=== PATIENT | female | born 1980 | race Caucasian/White ===

== ENCOUNTER 2016-10-24 15:09 | Emergency (ER) | payer OTHER ==
[2016-10-24] MEDS ORDERED: ACETAMINOPHEN TAB 500 MG TAB PO STA (15:44)
--- NOTE | 2016-10-24 15:49 | ED ---
General Adult HPI - General Chief complaint: Recheck/Abnormal Lab/Rx Stated complaint: Over all pain Time Seen by Provider: 10/24/16 15:25 Source: patient Mode of arrival: ambulatory Limitations: no limitations - History of Present Illness Initial comments: Complaining about her lack of energy, tired, generalized fatigue and the pain all over she feels that there are she has a headache any travels down her neck and upper extremities and lower extremities. Also complaining about the joint pains she feels that her joints are aching but they don't recall the time of this pain moved from [place] to . she has been very tired and lethargic lack of energy for about a month now she does have a history of headache in the past and she has a headache now also short winded she has a history of asthma denies any abdominal pain pain about joint aches no frequency urgency dysuria no symptoms of TIA or CVA he also had a total hysterectomy including uterus and ovaries she is on on hormone replacement therapy she does take estrogen pill once a day, denies any history of depression or anxiety or fibromyalgia - Related Data Home Medications Medication Instructions Recorded Confirmed Montelukast Sodium [Singulair] 10 mg PO HS 05/14/14 10/24/16 Albuterol Inhaler [Ventolin Hfa 1 - 2 puff INHALATION RT-Q4H PRN 10/24/16 Inhaler] Beclomethasone Dipropionate [Qvar 1 puff INHALATION RT-BID 10/24/16 10/24/16 80 mcg] Black Cohosh Root [Black Cohosh] 200 mg PO DAILY 10/24/16 10/24/16 Estradiol 2 mg PO HS 10/24/16 10/24/16 Fluticasone Nasal [place] [Flonase 1 spray EA NOSTRIL DAILY PRN 10/24/16 10/24/16 Nasal [place]] Allergies Allergy/AdvReac Type Severity Reaction Status Date / Time hydrocodone bitartrate AdvReac Vomiting Verified 10/24/16 16:11 [From Vicodin] eggplant Allergy Unknown Uncoded 10/24/16 15:23 Review of Systems ROS Statement: Those systems with pertinent positive or pertinent negative responses have been documented in the HPI. ROS Other: All systems not noted in ROS Statement are negative. Past Medical History Past Medical History: Asthma History of Any Multi-Drug Resistant Organisms: None Reported Past Surgical History: Section, Hysterectomy Past Psychological History: Depression Smoking Status: Current some day smoker Past Alcohol Use History: Occasional Past Drug Use History: None Reported General Exam - General Exam Comments Initial Comments: General: The patient is awake and alert, in no distress, and does not appear acutely ill. Skin: Skin is warm and dry and no rashes or lesions are noted. Eye: Pupils are equal, round and reactive to light, extra-ocular movements are intact; there is normal conjunctiva bilaterally. Ears, nose, mouth and throat: There are moist mucous membranes and no oral lesions. Neck: The neck is supple, there is no tenderness or JVD. Cardiovascular: There is a regular rate and rhythm. No murmur, rub or gallop is appreciated. Respiratory: To auscultation bilateral, no wheezing no rhonchi no distress respiratory romero noticed Gastrointestinal: Soft, non-distended, non-tender abdomen without masses or organomegaly noted. There is no rebound or guarding present. Bowel sounds are unremarkable. Back: There is no tenderness to palpation in the midline. There is no obvious deformity. Musculoskeletal: Normal ROM, no tenderness, There is no pedal edema. There is no calf tenderness or swelling. No cords were appreciated. Neurological: CN II-XII intact, Cranial nerves III through XII are intact. There are no obvious motor or sensory deficits. Coordination appears grossly intact. Speech is normal. Psychiatric: Cooperative, seems somewhat depressed Limitations: no limitations Course Vital Signs 10/24/16 10/24/16 15:18 17:40 Temperature 98.1 F Pulse Rate 84 62 Respiratory 16 18 Rate Blood Pressure 111/57 98/50 O2 Sat by Pulse 98 99 Oximetry She was reassessed at 1730, now she is now feeling as bad as she did when she came in, she still pains or feeling like a small recurrence lactic U did her different parts of her body and some muscle pains and feeling weak. I discussed all her labs that included CBC, compressive metabolic panel, she says , troponin, uric acid, calcium, magnesium, phosphate, urinalysis all those were normal x-ray showed some findings consistent with a bronchitis. I am I recommended that we could do a head CT she agreed with that and will proceed with a head CT now - Reevaluation(s) Reevaluation #3: 10/24/16 18:40 She delivered advised to see her family doctor for the follow-up and advised to have MRI of the brain done her CAT scan was negative FINDINGS were discussed with the patient and unfortunately I was not able to find etiology for her symptoms today EKG Findings - EKG Comments: EKG Findings:: EKG is normal sinus rhythm ventricular rate is 71 [place] interval is 180 QRS duration 74 QT/QTc is 378/410 review of this EKG does not reveal any ST elevation or ST depression Medical Decision Making - Lab Data Result diagrams: 10/24/16 16:10 10/24/16 16:10 Lab Results 10/24/16 10/24/16 10/24/16 Range/Units 16:10 16:10 16:10 WBC 7.1 (3.8-10.6) k/uL RBC 4.37 (3.80-5.40) m/uL Hgb 13.1 (11.4-16.0) gm/dL Hct 39.0 (34.0-46.0) % MCV 89.2 (80.0-100.0) fL MCH 30.0 (25.0-35.0) pg MCHC 33.7 (31.0-37.0) g/dL RDW 13.6 (11.5-15.5) % Plt Count 291 (150-450) k/uL Neutrophils % 60 % Lymphocytes % 30 % Monocytes % 4 % Eosinophils % 4 % Basophils % 1 % Neutrophils # 4.2 (1.3-7.7) k/uL Lymphocytes # 2.1 (1.0-4.8) k/uL Monocytes # 0.3 (0-1.0) k/uL Eosinophils # 0.3 (0-0.7) k/uL Basophils # 0.1 (0-0.2) k/uL ESR 3 (0-20) mm/hr Sodium 142 (137-145) mmol/L Potassium 4.4 (3.5-5.1) mmol/L Chloride 107 (98-107) mmol/L Carbon Dioxide 27 (22-30) mmol/L Anion Gap 8 mmol/L BUN 12 (7-17) mg/dL Creatinine 0.70 (0.52-1.04) mg/dL Est GFR (MDRD) Af Amer >60 (>60 ml/min/1.73 sqM) Est GFR (MDRD) Non-Af >60 (>60 ml/min/1.73 sqM) Glucose 76 (74-99) mg/dL Plasma Lactic Acid Dmitry (0.7-2.0) mmol/L Uric Acid 6.2 (3.7-7.4) mg/dL Calcium 9.7 (8.4-10.2) mg/dL Phosphorus 4.2 (2.5-4.5) mg/dL Magnesium 1.8 (1.6-2.3) mg/dL Total Bilirubin 0.3 (0.2-1.3) mg/dL AST 18 (14-36) U/L ALT 28 (9-52) U/L Alkaline Phosphatase 58 (38-126) U/L Total Creatine Kinase 57 (30-135) U/L CK-MB (CK-2) 0.6 (0.0-2.4) ng/mL CK-MB (CK-2) Rel Index 1.1 Troponin I <0.012 (0.000-0.034) ng/mL Total Protein 6.7 (6.3-8.2) g/dL Albumin 3.9 (3.5-5.0) g/dL TSH 3.370 (0.465-4.680) mIU/L Urine Color Urine Appearance (Clear) Urine pH (5.0-8.0) Ur Specific [place] (1.001-1.035) Urine Protein (Negative) Urine Glucose (UA) (Negative) Urine Ketones (Negative) Urine Blood (Negative) Urine Nitrite (Negative) Urine Bilirubin (Negative) Urine Urobilinogen (<2.0) mg/dL Ur Leukocyte Esterase (Negative) 10/24/16 10/24/16 Range/Units 16:10 16:10 WBC (3.8-10.6) k/uL RBC (3.80-5.40) m/uL Hgb (11.4-16.0) gm/dL Hct (34.0-46.0) % MCV (80.0-100.0) fL MCH (25.0-35.0) pg MCHC (31.0-37.0) g/dL RDW (11.5-15.5) % Plt Count (150-450) k/uL Neutrophils % % Lymphocytes % % Monocytes % % Eosinophils % % Basophils % % Neutrophils # (1.3-7.7) k/uL Lymphocytes # (1.0-4.8) k/uL Monocytes # (0-1.0) k/uL Eosinophils # (0-0.7) k/uL Basophils # (0-0.2) k/uL ESR (0-20) mm/hr Sodium (137-145) mmol/L Potassium (3.5-5.1) mmol/L Chloride (98-107) mmol/L Carbon Dioxide (22-30) mmol/L Anion Gap mmol/L BUN (7-17) mg/dL Creatinine (0.52-1.04) mg/dL Est GFR (MDRD) Af Amer (>60 ml/min/1.73 sqM) Est GFR (MDRD) Non-Af (>60 ml/min/1.73 sqM) Glucose (74-99) mg/dL Plasma Lactic Acid Dmitry 1.2 (0.7-2.0) mmol/L Uric Acid (3.7-7.4) mg/dL Calcium (8.4-10.2) mg/dL Phosphorus (2.5-4.5) mg/dL Magnesium (1.6-2.3) mg/dL Total Bilirubin (0.2-1.3) mg/dL AST (14-36) U/L ALT (9-52) U/L Alkaline Phosphatase (38-126) U/L Total Creatine Kinase (30-135) U/L CK-MB (CK-2) (0.0-2.4) ng/mL CK-MB (CK-2) Rel Index Troponin I (0.000-0.034) ng/mL Total Protein (6.3-8.2) g/dL Albumin (3.5-5.0) g/dL TSH (0.465-4.680) mIU/L Urine Color Yellow Urine Appearance Clear (Clear) Urine pH 5.5 (5.0-8.0) Ur Specific [place] 1.019 (1.001-1.035) Urine Protein Negative (Negative) Urine Glucose (UA) Negative (Negative) Urine Ketones Trace H (Negative) Urine Blood Negative (Negative) Urine Nitrite Negative (Negative) Urine Bilirubin Negative (Negative) Urine Urobilinogen <2.0 (<2.0) mg/dL Ur Leukocyte Esterase Negative (Negative) Disposition Clinical Impression: Generalized weakness, Chronic fatigue syndrome Disposition: HOME SELF-CARE Condition: Good Instructions: Weakness (ED) Referrals: Rashaun Francis MD [Primary Care Provider] - 1-2 days
[2016-10-24 16:26] LABS: Basophils # (A) 0.1 k/uL (0-0.2); Basophils % (A) 1 %; CH 30.5; CHCM 34.4; Eosinophils # (A) 0.3 k/uL (0-0.7); Eosinophils % (A) 4 %; HGB 13.1 gm/dL (11.4-16.0); Luc # (Auto) 0.09; Luc % (Auto) 1; Lymphocytes # (A) 2.1 k/uL (1.0-4.8); Lymphocytes % (A) 30 %; MCHC 33.7 g/dL (31.0-37.0); MCV 89.2 fL (80.0-100.0); Mean Platelet Volume 6.2; Monocytes # (A) 0.3 k/uL (0-1.0); Monocytes % (A) 4 %; Neutrophils # (A) 4.2 k/uL (1.3-7.7); Neutrophils % (A) 60 %; RBC 4.37 m/uL (3.80-5.40); RDW 13.6 % (11.5-15.5); WBC 7.1 k/uL (3.8-10.6); WBC (Perox) 7.29
[2016-10-24 16:27] LABS: Appearance,Urine Clear (Clear); Bilirubin,Urine Negative (Negative); Glucose,Urine (UA) Negative (Negative); Ketones,Urine Trace (Negative); Leukocyte Esterase,Urine Negative (Negative); Nitrite,Urine Negative (Negative); PH, Urine 5.5 (5.0-8.0); Protein,Urine Negative (Negative); Specific Gravity,Urine 1.019 (1.001-1.035); UA Billing (MACRO vs. MICRO) CHEM; Urobilinogen,Urine <2.0 mg/dL (<2.0)
--- NOTE | 2016-10-24 16:37 | XR ---
EXAMINATION TYPE: XR chest 2V DATE OF EXAM: 10/24/2016 4:25 PM COMPARISON: None HISTORY: 36-year-old female weakness and short of breath TECHNIQUE: PA and lateral views FINDINGS: The cardiomediastinal silhouette, aorta, and pulmonary vasculature are within normal limits. Some sub tle scattered peribronchial cuffing. Otherwise, lungs and pleural spaces are clear. IMPRESSION: Subtle scattered peribronchial cuffing could represent bronchitis or chronic asthma.
[2016-10-24 16:39] LABS: ALT 28 U/L (9-52); AST 18 U/L (14-36); Alkaline Phosphatase 58 U/L (38-126); Anion Gap 8 mmol/L; Blood Urea Nitrogen 12 mg/dL (7-17); Calcium 9.7 mg/dL (8.4-10.2); Carbon Dioxide 27 mmol/L (22-30); Chloride 107 mmol/L (98-107); Glucose 76 mg/dL (74-99); Magnesium 1.8 mg/dL (1.6-2.3); Non-African American GFR(MDRD) >60 (>60 ml/min/1.73 sqM); Phosphorous 4.2 mg/dL (2.5-4.5); Potassium 4.4 mmol/L (3.5-5.1); Sodium 142 mmol/L (137-145); Total Bilirubin 0.3 mg/dL (0.2-1.3); Total Protein 6.7 g/dL (6.3-8.2); Uric Acid 6.2 mg/dL (3.7-7.4)
[2016-10-24 16:47] LABS: Creatine Kinase 57 U/L (30-135)
[2016-10-24 17:00] LABS: Creatine Kinase MB 0.6 ng/mL (0.0-2.4); Troponin I <0.012 ng/mL (0.000-0.034)
[2016-10-24 17:34] LABS: Erythrocyte Sedimentation Rate 3 mm/hr (0-20)
[2016-10-24 17:57] VITALS: RESP 18
--- NOTE | 2016-10-24 18:23 | CT ---
EXAMINATION TYPE: CT brain wo con DATE OF EXAM: 10/24/2016 6:14 PM COMPARISON: NONE HISTORY: 36-year-old female complains of "all over body pains." TECHNIQUE: Examination was done in axial plane without intravenous contrast. Coronal and sagittal r econstructions performed. CT DLP: 956.1 mGycm Automated exposure control for dose reduction was used. FINDINGS: There is no evidence of acute intracranial hemorrhage, acute ischemic changes, mass, mass-effect, or extra-axial fluid collection. There is no effacement of cerebral sulci or basal subarachnoid cister ns. There is no hydrocephalus. There is no midline shift. Trejo-white matter distinction is preserv ed. Mild mucosal thickening posterior left ethmoid air cells. Mastoid air cells well pneumatized. Orbits and globes are intact. IMPRESSION: No acute intracranial abnormality seen.
[2016-10-24 18:42] VITALS: BP 113/53; PULSE 63; TEMP 97.6
== END 2016-10-24 18:42 | disposition home or self-care (01) ==
LOC: EC 15:09
DX: R53.1 Weakness (principal); R53.82 Chronic fatigue, unspecified; R51 Headache; J45.909 Unspecified asthma, uncomplicated; F17.200 Nicotine dependence, unspecified, uncomplicated; Z79.51 Long term (current) use of inhaled steroids; Z79.899 Other long term (current) drug therapy; Z79.3 Long term (current) use of hormonal contraceptives; Z88.5 Allergy status to narcotic agent; Z91.018 Allergy to other foods
CPT/HCPCS: 36415; 70450; 71020; 80053; 81003; 82550; 82553; 83605; 83735; 84100; 84443; 84484; 84550; 85025; 85652; 93005; 99284

== ENCOUNTER 2016-12-21 19:11 | Emergency (ER) | payer OTHER ==
[2016-12-21 19:27] VITALS: BP 112/63; PULSE 69; RESP 17; TEMP 97.1
--- NOTE | 2016-12-21 19:43 | ED ---
Back Pain HPI - General Chief Complaint: Back Pain/Injury Stated Complaint: Back Pain Time Seen by Provider: 12/21/16 19:30 Source: patient, RN notes reviewed Limitations: no limitations - History of Present Illness Initial Comments: 36-year-old female presents emergency Department chief complaint back pain. 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 She states that she's been having diffuse back pain and neck discomfort. Patient denies any bowel bladder incontinence or retention. Denies any saddle anesthesia or lower extremity paresthesias. She is increased pain with any movement of her back and neck. Denies fever, chills , headache, dizziness. Patient states not take anything for the pain she did move quickly today which made symptoms much worse. - Related Data Home Medications Medication Instructions Recorded Confirmed Montelukast Sodium [Singulair] 10 mg PO HS 05/14/14 10/24/16 Albuterol Inhaler [Ventolin Hfa 1 - 2 puff INHALATION RT-Q4H PRN 10/24/16 Inhaler] Beclomethasone Dipropionate [Qvar 1 puff INHALATION RT-BID 10/24/16 10/24/16 80 mcg] Black Cohosh Root [Black Cohosh] 200 mg PO DAILY 10/24/16 10/24/16 Estradiol 2 mg PO HS 10/24/16 10/24/16 Fluticasone Nasal [place] [Flonase 1 spray EA NOSTRIL DAILY PRN 10/24/16 10/24/16 Nasal [place]] Previous Rx's Medication Instructions Recorded Acetaminophen-Codeine 300-30mg 1 tab PO Q4H PRN #20 tablet 12/21/16 [Tylenol #3] Cyclobenzaprine [Flexeril] 10 mg PO TID PRN #15 tab 12/21/16 methylPREDNISolone [Medrol Dose 4 mg PO DIRECTED #1 pack 12/21/16 Pack] Allergies Allergy/AdvReac Type Severity Reaction Status Date / Time hydrocodone bitartrate AdvReac Vomiting Verified 12/21/16 19:24 [From Vicodin] eggplant Allergy Unknown Uncoded 12/21/16 19:24 Review of Systems ROS Statement: Those systems with pertinent positive or pertinent negative responses have been documented in the HPI. ROS Other: All systems not noted in ROS Statement are negative. Past Medical History Past Medical History: Asthma History of Any Multi-Drug Resistant Organisms: None Reported Past Surgical History: Section, Hysterectomy Past Psychological History: Depression Smoking Status: Current some day smoker Past Alcohol Use History: Occasional Past Drug Use History: None Reported General Exam Limitations: no limitations General appearance: alert, in no apparent distress Head exam: Present: atraumatic, normocephalic, normal inspection Neck exam: Present: full ROM. Absent: tenderness, meningismus Respiratory exam: Present: normal lung sounds bilaterally. Absent: respiratory distress, wheezes, rales, rhonchi, stridor Cardiovascular Exam: Present: regular rate, normal rhythm, normal heart sounds. Absent: systolic murmur, diastolic murmur, rubs, gallop, clicks GI/Abdominal exam: Present: soft, normal bowel sounds. Absent: distended, tenderness, guarding, rebound, rigid Extremities exam: Present: normal inspection, full ROM, normal capillary refill. Absent: tenderness, pedal edema, joint swelling, calf tenderness Back exam: Present: full ROM, tenderness (Diffuse thoracic and lumbar), muscle spasm, paraspinal tenderness. Absent: vertebral tenderness Neurological exam: Present: alert, oriented X3, CN II-XII intact, reflexes normal. Absent: motor sensory deficit Skin exam: Present: warm, dry, intact, normal color. Absent: rash Course Vital Signs 12/21/16 19:24 Temperature 97.1 F L Pulse Rate 69 Respiratory 17 Rate Blood Pressure 112/63 O2 Sat by Pulse 97 Oximetry Medical Decision Making - Medical Decision Making 36-year-old female presented for back pain. Patient is having back pain related to her job at this time. Patient has no signs of meningismus. Patient has no neurological deficits and no decreased strength of extremities. Patient we discharged with pain medication, muscle relaxers. Return parameters were discussed. Disposition Clinical Impression: Mechanical back pain Disposition: HOME SELF-CARE Condition: Stable Instructions: Back Pain (ED) Additional Instructions: Please return to the Emergency Department if symptoms worsen or any other concerns. Prescriptions: Acetaminophen-Codeine 300-30mg [Tylenol #3] 1 tab PO Q4H PRN #20 tablet PRN Reason: pain Cyclobenzaprine [Flexeril] 10 mg PO TID PRN #15 tab PRN Reason: Muscle Spasm methylPREDNISolone [Medrol Dose Pack] 4 mg PO DIRECTED #1 pack Referrals: Rashaun Francis MD [Primary Care Provider] - 1-2 days Time of Disposition: 19:41
== END 2016-12-21 19:47 | disposition home or self-care (01) ==
LOC: EC 19:11
DX: M62.830 Muscle spasm of back (principal); J45.909 Unspecified asthma, uncomplicated; F17.200 Nicotine dependence, unspecified, uncomplicated; Z79.51 Long term (current) use of inhaled steroids; Z79.899 Other long term (current) drug therapy; Z88.5 Allergy status to narcotic agent; Z91.018 Allergy to other foods
CPT/HCPCS: 99282

== ENCOUNTER 2018-01-07 19:28 | Emergency (ER) | payer OTHER ==
[2018-01-07] MEDS ORDERED: SODIUM CHLORIDE 0.9% 500 ML IV STA (21:25)
[2018-01-07 21:56] LABS: Appearance,Urine Clear (Clear); Bilirubin,Urine Negative (Negative); Blood,Urine Negative (Negative); Color,Urine Yellow; Glucose,Urine (UA) Negative (Negative); Ketones,Urine Negative (Negative); Leukocyte Esterase,Urine Negative (Negative); Nitrite,Urine Negative (Negative); PH, Urine 5.5 (5.0-8.0); Protein,Urine Negative (Negative); Specific Gravity,Urine 1.015 (1.001-1.035); Urobilinogen,Urine <2.0 mg/dL (<2.0)
[2018-01-07 21:58] LABS: Basophils % (A) 1 %; Eosinophils # (A) 0.2 k/uL (0-0.7); Eosinophils % (A) 3 %; HCT 39.6 % (34.0-46.0); HGB 13.5 gm/dL (11.4-16.0); Lymphocytes # (A) 2.6 k/uL (1.0-4.8); Lymphocytes % (A) 36 %; MCH 29.9 pg (25.0-35.0); MCHC 34.2 g/dL (31.0-37.0); MCV 87.5 fL (80.0-100.0); Mean Platelet Volume 6.3; Monocytes # (A) 0.3 k/uL (0-1.0); Monocytes % (A) 4 %; Neutrophils # (A) 4.1 k/uL (1.3-7.7); Neutrophils % (A) 56 %; Platelet Count 262 k/uL (150-450); RBC 4.53 m/uL (3.80-5.40); RDW 13.5 % (11.5-15.5); WBC 7.3 k/uL (3.8-10.6)
[2018-01-07 22:04] LABS: ALT 32 U/L (9-52); AST 22 U/L (14-36); Albumin 4.1 g/dL (3.5-5.0); Alkaline Phosphatase 60 U/L (38-126); Anion Gap 7 mmol/L; Blood Urea Nitrogen 14 mg/dL (7-17); Calcium 9.5 mg/dL (8.4-10.2); Carbon Dioxide 26 mmol/L (22-30); Chloride 106 mmol/L (98-107); Glucose 92 mg/dL (74-99); Potassium 4.3 mmol/L (3.5-5.1); Sodium 139 mmol/L (137-145); Total Bilirubin 0.2 mg/dL (0.2-1.3); Total Protein 6.6 g/dL (6.3-8.2)
[2018-01-07 22:07] LABS: Amphetamine Screen,Urine Not Detected (NotDetected); Barbiturate Screen,Urine Not Detected (NotDetected); Benzodiazepines Screen,Urine Not Detected (NotDetected); Cocaine Screen,Urine Not Detected (NotDetected); Methadone Screen, Urine Not Detected (NotDetected); Opiate Screen,Urine Not Detected (NotDetected); Oxycodone Screen, Urine Not Detected (NotDetected); Phencyclidine Screen,Urine Not Detected (NotDetected); Tricyclic Antidepressant,Urine Not Detected (NotDetected); Urn Cannabinoid Scrn Not Detected (NotDetected)
--- NOTE | 2018-01-07 22:23 | XR ---
EXAMINATION TYPE: XR chest 1V portable DATE OF EXAM: 01/07/2018 COMPARISON: 10/24/2016 HISTORY: Vertigo TECHNIQUE: Single frontal view of the chest is obtained. FINDINGS: Heart and mediastinum are normal. Lungs are clear. Diaphragm is normal. Pulmonary vascular ity is normal. Bony thorax appears normal. IMPRESSION: Normal chest. No change.
[2018-01-07 22:46] LABS: Erythrocyte Sedimentation Rate 8 mm/hr (0-20)
--- NOTE | 2018-01-07 22:50 | ED ---
Dizziness HPI - General Chief Complaint: Dizziness Stated Complaint: Dizziness Time Seen by Provider: 01/07/18 21:20 Source: patient Mode of arrival: ambulatory Limitations: no limitations - History of Present Illness MD Complaint: dizziness Onset/Timin -: days(s) Timing: gradual onset Description: "room spinning" History of Same: Yes History of Trauma: No Severity: moderate Improves With: remaining still Worsens With: movement Associated Symptoms: denies other symptoms - Related Data Home Medications Medication Instructions Recorded Confirmed Montelukast Sodium [Singulair] 10 mg PO DAILY 05/14/14 01/07/18 Albuterol Inhaler [Ventolin Hfa 1 - 2 puff INHALATION RT-Q4H PRN 10/24/16 Inhaler] Estradiol 2 mg PO DAILY 10/24/16 01/07/18 Fluticasone Nasal [place] [Flonase 1 spray EA NOSTRIL DAILY 10/24/16 01/07/18 Nasal [place]] Budesonide/Formoterol Fumarate 2 puff INHALATION RT-DAILY 01/07/18 01/07/18 [Symbicort 80-4.5 Mcg Inhaler] Cholecalciferol [Vitamin D3] 3,000 unit PO DAILY 01/07/18 01/07/18 Loratadine [Claritin] 10 mg PO DAILY 01/07/18 01/07/18 Methocarbamol [Robaxin] 500 mg PO DAILY PRN 01/07/18 01/07/18 Previous Rx's Medication Instructions Recorded Meclizine [Antivert] 25 mg PO TID PRN #20 tab 01/07/18 Allergies Allergy/AdvReac Type Severity Reaction Status Date / Time hydrocodone bitartrate AdvReac Vomiting Verified 01/07/18 21:29 [From Vicodin] eggplant Allergy Unknown Uncoded 01/07/18 20:22 Review of Systems ROS Statement: Those systems with pertinent positive or pertinent negative responses have been documented in the HPI. ROS Other: All systems not noted in ROS Statement are negative. Constitutional: Denies: fever, chills, weakness Eyes: Denies: vision change ENT: Denies: ear pain, hearing loss Respiratory: Denies: cough, dyspnea Cardiovascular: Denies: chest pain, palpitations, edema, syncope Gastrointestinal: Reports: nausea. Denies: abdominal pain, vomiting Genitourinary: Denies: dysuria, hematuria Musculoskeletal: Denies: back pain Skin: Denies: rash Neurological: Reports: vertigo. Denies: headache, weakness, numbness, paresthesias Past Medical History Past Medical History: Asthma Additional Past Medical History / Comment(s): seasonal allergies History of Any Multi-Drug Resistant Organisms: None Reported Past Surgical History: Section, Hysterectomy Past Psychological History: Depression Smoking Status: Current every day smoker Past Alcohol Use History: Occasional Past Drug Use History: None Reported General Exam Limitations: no limitations General appearance: alert, in no apparent distress, obese Head exam: Present: atraumatic, normocephalic Eye exam: Present: normal appearance. Absent: scleral icterus, conjunctival injection ENT exam: Present: normal oropharynx Neck exam: Present: normal inspection Respiratory exam: Present: normal lung sounds bilaterally. Absent: respiratory distress, wheezes, rales, rhonchi, stridor Cardiovascular Exam: Present: regular rate, normal rhythm, normal heart sounds. Absent: systolic murmur, diastolic murmur, rubs, gallop GI/Abdominal exam: Present: soft. Absent: distended, tenderness, guarding, rebound Extremities exam: Present: normal inspection, normal capillary refill Neurological exam: Present: alert, oriented X3, CN II-XII intact. Absent: motor sensory deficit Skin exam: Present: warm, dry, intact, normal color. Absent: rash Course Vital Signs 01/07/18 01/07/18 20:19 23:20 Temperature 97.6 F 97.8 F Pulse Rate 65 62 Respiratory 18 17 Rate Blood Pressure 117/73 115/56 O2 Sat by Pulse 100 98 Oximetry Medical Decision Making - Medical Decision Making Discussed results with patient. Discussed having another CT, though she did have one last year that was normal, and I suspect that the yield would be low for repeating the study. She does have a follow-up with Dr. Gallagher who she is seeing about some bilateral lower extremity paresthesia issues. Discussed appropriate further care and follow-up as well as return parameters. - Lab Data Result diagrams: 01/07/18 21:47 01/07/18 21:47 Lab Results 01/07/18 01/07/18 01/07/18 Range/Units 21:47 21:47 21:47 WBC 7.3 (3.8-10.6) k/uL RBC 4.53 (3.80-5.40) m/uL Hgb 13.5 (11.4-16.0) gm/dL Hct 39.6 (34.0-46.0) % MCV 87.5 (80.0-100.0) fL MCH 29.9 (25.0-35.0) pg MCHC 34.2 (31.0-37.0) g/dL RDW 13.5 (11.5-15.5) % Plt Count 262 (150-450) k/uL Neutrophils % 56 % Lymphocytes % 36 % Monocytes % 4 % Eosinophils % 3 % Basophils % 1 % Neutrophils # 4.1 (1.3-7.7) k/uL Lymphocytes # 2.6 (1.0-4.8) k/uL Monocytes # 0.3 (0-1.0) k/uL Eosinophils # 0.2 (0-0.7) k/uL Basophils # 0.0 (0-0.2) k/uL ESR 8 (0-20) mm/hr Sodium 139 (137-145) mmol/L Potassium 4.3 (3.5-5.1) mmol/L Chloride 106 (98-107) mmol/L Carbon Dioxide 26 (22-30) mmol/L Anion Gap 7 mmol/L BUN 14 (7-17) mg/dL Creatinine 0.72 (0.52-1.04) mg/dL Est GFR (CKD-EPI)AfAm >90 (>60 ml/min/1.73 sqM) Est GFR (CKD-EPI)NonAf >90 (>60 ml/min/1.73 sqM) Glucose 92 (74-99) mg/dL Calcium 9.5 (8.4-10.2) mg/dL Total Bilirubin 0.2 (0.2-1.3) mg/dL AST 22 (14-36) U/L ALT 32 (9-52) U/L Alkaline Phosphatase 60 (38-126) U/L Total Protein 6.6 (6.3-8.2) g/dL Albumin 4.1 (3.5-5.0) g/dL Urine Color Yellow Urine Appearance Clear (Clear) Urine pH 5.5 (5.0-8.0) Ur Specific [place] 1.015 (1.001-1.035) Urine Protein Negative (Negative) Urine Glucose (UA) Negative (Negative) Urine Ketones Negative (Negative) Urine Blood Negative (Negative) Urine Nitrite Negative (Negative) Urine Bilirubin Negative (Negative) Urine Urobilinogen <2.0 (<2.0) mg/dL Ur Leukocyte Esterase Negative (Negative) Urine HCG, Qual (Not Detectd) Urine Opiates Screen Not Detected (NotDetected) Ur Oxycodone Screen Not Detected (NotDetected) Urine Methadone Screen Not Detected (NotDetected) Ur Propoxyphene Screen Not Detected (NotDetected) Ur Barbiturates Screen Not Detected (NotDetected) U Tricyclic Antidepress Not Detected (NotDetected) Ur Phencyclidine Scrn Not Detected (NotDetected) Ur Amphetamines Screen Not Detected (NotDetected) U Methamphetamines Scrn Not Detected (NotDetected) U Benzodiazepines Scrn Not Detected (NotDetected) Urine Cocaine Screen Not Detected (NotDetected) U Marijuana (THC) Screen Not Detected (NotDetected) 01/07/18 Range/Units 21:47 WBC (3.8-10.6) k/uL RBC (3.80-5.40) m/uL Hgb (11.4-16.0) gm/dL Hct (34.0-46.0) % MCV (80.0-100.0) fL MCH (25.0-35.0) pg MCHC (31.0-37.0) g/dL RDW (11.5-15.5) % Plt Count (150-450) k/uL Neutrophils % % Lymphocytes % % Monocytes % % Eosinophils % % Basophils % % Neutrophils # (1.3-7.7) k/uL Lymphocytes # (1.0-4.8) k/uL Monocytes # (0-1.0) k/uL Eosinophils # (0-0.7) k/uL Basophils # (0-0.2) k/uL ESR (0-20) mm/hr Sodium (137-145) mmol/L Potassium (3.5-5.1) mmol/L Chloride (98-107) mmol/L Carbon Dioxide (22-30) mmol/L Anion Gap mmol/L BUN (7-17) mg/dL Creatinine (0.52-1.04) mg/dL Est GFR (CKD-EPI)AfAm (>60 ml/min/1.73 sqM) Est GFR (CKD-EPI)NonAf (>60 ml/min/1.73 sqM) Glucose (74-99) mg/dL Calcium (8.4-10.2) mg/dL Total Bilirubin (0.2-1.3) mg/dL AST (14-36) U/L ALT (9-52) U/L Alkaline Phosphatase (38-126) U/L Total Protein (6.3-8.2) g/dL Albumin (3.5-5.0) g/dL Urine Color Urine Appearance (Clear) Urine pH (5.0-8.0) Ur Specific [place] (1.001-1.035) Urine Protein (Negative) Urine Glucose (UA) (Negative) Urine Ketones (Negative) Urine Blood (Negative) Urine Nitrite (Negative) Urine Bilirubin (Negative) Urine Urobilinogen (<2.0) mg/dL Ur Leukocyte Esterase (Negative) Urine HCG, Qual Not Detected (Not Detectd) Urine Opiates Screen (NotDetected) Ur Oxycodone Screen (NotDetected) Urine Methadone Screen (NotDetected) Ur Propoxyphene Screen (NotDetected) Ur Barbiturates Screen (NotDetected) U Tricyclic Antidepress (NotDetected) Ur Phencyclidine Scrn (NotDetected) Ur Amphetamines Screen (NotDetected) U Methamphetamines Scrn (NotDetected) U Benzodiazepines Scrn (NotDetected) Urine Cocaine Screen (NotDetected) U Marijuana (THC) Screen (NotDetected) - EKG Data -: EKG Interpreted by Ok EKG shows normal: sinus rhythm, axis (Normal), intervals (Normal), ST-T waves ( Normal) Rate: bradycardia (Rate 58 bpm) Disposition Clinical Impression: Vertigo Disposition: HOME SELF-CARE Condition: Good Instructions: Dizziness (ED) Prescriptions: Meclizine [Antivert] 25 mg PO TID PRN #20 tab PRN Reason: Vertigo Is patient prescribed a controlled substance at d/c from ED?: No Referrals: Rashaun Francis MD [Primary Care Provider] - 1-2 days Amadou Gallagher MD [STAFF PHYSICIAN] - 1-2 days Yusef Arriaga MD [STAFF PHYSICIAN] - 1-2 days
[2018-01-07] MEDS ORDERED: MECLIZINE 12.5 MG TAB PO STA (23:06)
[2018-01-07 23:22] VITALS: BP 115/56; PULSE 62; RESP 17; TEMP 97.8
== END 2018-01-07 23:22 | disposition home or self-care (01) ==
LOC: EC 19:28
DX: R42 Dizziness and giddiness (principal); J45.909 Unspecified asthma, uncomplicated; F17.200 Nicotine dependence, unspecified, uncomplicated; Z79.51 Long term (current) use of inhaled steroids; Z79.818 Long term (current) use of other agents affecting estrogen receptors and estrogen levels; Z79.899 Other long term (current) drug therapy; Z88.5 Allergy status to narcotic agent; Z91.018 Allergy to other foods
CPT/HCPCS: 36415; 71045; 80053; 80306; 81003; 81025; 85025; 85652; 93005; 96360; 99284

== ENCOUNTER 2018-01-31 19:52 | Emergency (ER) | payer OTHER ==
[2018-01-31 20:05] VITALS: BP 126/83; PULSE 86; RESP 16; TEMP 98.8
[2018-01-31] MEDS ORDERED: IBUPROFEN 600 MG TAB PO STA (20:34)
--- NOTE | 2018-01-31 20:45 | ED ---
Lower Extremity Injury HPI - General Chief Complaint: Extremity Injury, Lower Stated Complaint: foot injury-[facility] Time Seen by Provider: 01/31/18 20:00 Source: patient Mode of arrival: ambulatory Limitations: no limitations - History of Present Illness Initial Comments: This a 37 or female with past medical history of asthma and fibromyalgia presents today for chief complaint of right posterior ankle pain 2 hours. Patient states that 6:30 PM this evening she was working at [employer] she was pushing trash can in front of her and pulling a flatbed cart behind her, when the car got stuck on the door she pulled hard and pulled the right into the posterior aspect of her right ankle. Patient immediately noticed pain in the posterior ankle, with a small abrasion for which she cleaned out with water and applied antibacterial ointment. Patient stated that the pain was a 6 out of 10 localized to the right ankle. Patient denies falling or ankle, falling or injury to any other extremity. Patient states her tetanus up-to-date. Patient denies numbness, tingling, loss sensation, muscle weakness, inability to ambulate or any other symptoms. Remainder of ROS negative. Upon presentation patient's vital signs stable. - Related Data Home Medications Medication Instructions Recorded Confirmed Montelukast Sodium [Singulair] 10 mg PO DAILY 05/14/14 01/07/18 Albuterol Inhaler [Ventolin Hfa 1 - 2 puff INHALATION RT-Q4H PRN 10/24/16 Inhaler] Estradiol 2 mg PO DAILY 10/24/16 01/07/18 Fluticasone Nasal [place] [Flonase 1 spray EA NOSTRIL DAILY 10/24/16 01/07/18 Nasal [place]] Budesonide/Formoterol Fumarate 2 puff INHALATION RT-DAILY 01/07/18 01/07/18 [Symbicort 80-4.5 Mcg Inhaler] Cholecalciferol [Vitamin D3] 3,000 unit PO DAILY 01/07/18 01/07/18 Loratadine [Claritin] 10 mg PO DAILY 01/07/18 01/07/18 Methocarbamol [Robaxin] 500 mg PO DAILY PRN 01/07/18 01/07/18 Previous Rx's Medication Instructions Recorded Meclizine [Antivert] 25 mg PO TID PRN #20 tab 01/07/18 Allergies Allergy/AdvReac Type Severity Reaction Status Date / Time hydrocodone bitartrate AdvReac Vomiting Verified 01/31/18 19:57 [From Vicodin] eggplant Allergy Unknown Uncoded 01/31/18 19:57 Review of Systems ROS Statement: Those systems with pertinent positive or pertinent negative responses have been documented in the HPI. ROS Other: All systems not noted in ROS Statement are negative. Constitutional: Denies: fever, chills Respiratory: Denies: cough, dyspnea Cardiovascular: Denies: chest pain, palpitations Gastrointestinal: Denies: abdominal pain, nausea, vomiting Genitourinary: Denies: urgency, dysuria Musculoskeletal: Reports: arthralgia. Denies: back pain Skin: Denies: rash, lesions Neurological: Denies: headache, weakness, numbness, paresthesias, confusion, abnormal gait Past Medical History Past Medical History: Asthma Additional Past Medical History / Comment(s): seasonal allergies History of Any Multi-Drug Resistant Organisms: None Reported Past Surgical History: Section, Hysterectomy Past Psychological History: Depression Smoking Status: Current every day smoker Past Alcohol Use History: Occasional Past Drug Use History: None Reported General Exam - General Exam Comments Initial Comments: General: The patient is awake and alert, in no distress, and does not appear acutely ill. Eye: Pupils are equal, extra-ocular movements are intact. No nystagmus. There is normal conjunctiva bilaterally. No signs of icterus. Cardiovascular: There is a regular rate and rhythm. No murmur, rub or gallop is appreciated. Respiratory: Lungs are clear to auscultation, respirations are non-labored, breath sounds are equal. No wheezes, stridor, rales, or rhonchi. Musculoskeletal: Pt is able to plantar and dorsiflex at the ankles b/l, as well as invert and elisa without difficulty, no tenderness. There is tenderness to palpation over the posterior aspect of the right ankle, and small linear abrasion present, superficial. Strength 5/5 with all actions of the right ankle. Sensation intact of the LE equally b/l. DP pulses equal bilaterally 2+. capillary refill <2seconds. Homans intact. Achilles palpable. No palpable mass in the posterior right calf. Neurological: A&O x 3. CN II-XII intact, There are no obvious motor or sensory deficits. Coordination appears grossly intact. Speech is normal. Skin: Skin is warm and dry and no rashes or lesions are noted. Psychiatric: Cooperative, appropriate mood & affect, normal judgment. Limitations: no limitations Course Vital Signs 01/31/18 19:53 Temperature 98.8 F Pulse Rate 86 Respiratory 16 Rate Blood Pressure 126/83 O2 Sat by Pulse 98 Oximetry Medical Decision Making - Medical Decision Making 37yo with cc of right ankle pain concerning for contusion vs fracture. XR right ankle obtained revealing no acute fracture or dislocation. There is no signs of achilles tendon rupture, no palpable masses of the posterior right calf, can palpate the achilles. Small abrasion was cleansed, bacitracin and sterile bandage applied. Patient's tetanus was up-to-date. Gonzalez bandage is applied to ankle. At this time feel patient has a posterior ankle contusion. Case is discussed in detail with Dr. Vargas who agrees the impression and plan of [place] instructions and primary care follow-up in 1-2 days. Patient was instructed to use [id number] ibuprofen and Tylenol for pain management as needed. Patient verbalizes agreement plan and understanding. Patient denied any questions at this time. [facility] paperwork was filled out. Patient was discharged in stable condition Disposition Clinical Impression: Contusion, ankle Disposition: HOME SELF-CARE Condition: Good Instructions: Contusion in Adults (ED) Additional Instructions: Please use medication as discussed. Please follow-up with family doctor in the next 2 days of symptoms have not improved. Please return to emergency room if the symptoms increase or worsen or for any other concerns. Is patient prescribed a controlled substance at d/c from ED?: No Referrals: Rashanu Francis MD [Primary Care Provider] - 1-2 days Time of Disposition: 21:34
--- NOTE | 2018-01-31 21:32 | XR ---
EXAMINATION TYPE: XR ankle complete RT DATE OF EXAM: 01/31/2018 COMPARISON: NONE HISTORY: Ankle pain TECHNIQUE: 3 views FINDINGS: Ankle mortise is anatomic. I see no fracture nor dislocation. Joint spaces are normal. IMPRESSION: Negative right ankle exam.
== END 2018-01-31 21:45 | disposition home or self-care (01) ==
LOC: EC 19:52
DX: S90.01XA Contusion of right ankle, initial encounter (principal); J45.909 Unspecified asthma, uncomplicated; F32.9 Major depressive disorder, single episode, unspecified; F17.200 Nicotine dependence, unspecified, uncomplicated; Z79.52 Long term (current) use of systemic steroids; Z79.899 Other long term (current) drug therapy; Z88.5 Allergy status to narcotic agent; Z91.018 Allergy to other foods; W22.8XXA Striking against or struck by other objects, initial encounter; Y99.0 Civilian activity done for income or pay
CPT/HCPCS: 99283

== ENCOUNTER 2018-05-05 15:26 | Emergency (ER) | payer OTHER ==
[2018-05-05 16:56] VITALS: BP 151/73; PULSE 85; RESP 18; TEMP 98.2
--- NOTE | 2018-05-05 17:13 | ED ---
General Adult HPI - General Chief complaint: Extremity Injury, Lower Stated complaint: Leg injury Time Seen by Provider: 05/05/18 16:58 Source: patient, RN notes reviewed Mode of arrival: ambulatory Limitations: no limitations - History of Present Illness Initial comments: Patient 38-year-old female presenting to the emergency room today with a chief complaint of increased pain to the right calf. She does admit that she was on her way home from work when she went to get out of her car and felt sharp pain in the back of the right calf. She states it's been present over the last few hours. States never had pain like this before. States worse with both plantar and dorsiflexion. Patient denies any specific injury or trauma. States she has pretty active child or she's [place]. Patient denies any other complaints or symptoms currently. Patient admits to a history of hysterectomy. Denies any recent travel. Denies any injury. Patient denies any recent fever, chills, shortness of breath, chest pain, back pain, abdominal pain, nausea or vomiting, numbness or tingling, dysuria or hematuria, constipation or diarrhea, headaches or visual changes, or any other complaints. - Related Data Home Medications Medication Instructions Recorded Confirmed Montelukast Sodium [Singulair] 10 mg PO DAILY 05/14/14 01/07/18 Albuterol Inhaler [Ventolin Hfa 1 - 2 puff INHALATION RT-Q4H PRN 10/24/16 Inhaler] Estradiol 2 mg PO DAILY 10/24/16 01/07/18 Fluticasone Nasal [place] [Flonase 1 spray EA NOSTRIL DAILY 10/24/16 01/07/18 Nasal [place]] Budesonide/Formoterol Fumarate 2 puff INHALATION RT-DAILY 01/07/18 01/07/18 [Symbicort 80-4.5 Mcg Inhaler] Cholecalciferol [Vitamin D3] 3,000 unit PO DAILY 01/07/18 01/07/18 Loratadine [Claritin] 10 mg PO DAILY 01/07/18 01/07/18 Methocarbamol [Robaxin] 500 mg PO DAILY PRN 01/07/18 01/07/18 Previous Rx's Medication Instructions Recorded Meclizine [Antivert] 25 mg PO TID PRN #20 tab 01/07/18 Allergies Allergy/AdvReac Type Severity Reaction Status Date / Time hydrocodone bitartrate AdvReac Vomiting Verified 01/31/18 19:57 [From Vicodin] eggplant Allergy Unknown Uncoded 01/31/18 19:57 Review of Systems ROS Statement: Those systems with pertinent positive or pertinent negative responses have been documented in the HPI. ROS Other: All systems not noted in ROS Statement are negative. Past Medical History Past Medical History: Asthma Additional Past Medical History / Comment(s): seasonal allergies History of Any Multi-Drug Resistant Organisms: None Reported Past Surgical History: Section, Hysterectomy Past Psychological History: Depression Smoking Status: Current every day smoker Past Alcohol Use History: Occasional Past Drug Use History: None Reported General Exam - General Exam Comments Initial Comments: General: The patient is awake and alert, in no distress, and does not appear acutely ill. Eye: Pupils are equal, round and reactive to light, extra-ocular movements are intact. No nystagmus. There is normal conjunctiva bilaterally. No signs of icterus. Ears, nose, mouth and throat: There are moist mucous membranes and no oral lesions. Neck: The neck is supple, there is no tenderness or JVD. Cardiovascular: There is a regular rate and rhythm. No murmur, rub or gallop is appreciated. Respiratory: Lungs are clear to auscultation, respirations are non-labored, breath sounds are equal. No wheezes, stridor, rales, or rhonchi. Musculoskeletal: Normal ROM. Normal rinse of the thoracic or lumbar spine with no step-off or deformity. No tenderness midline. No tenderness in the back. Patient does have tenderness to the right calf. Positive Homans. Strength 5/5. Sensation intact. Pulses equal bilaterally 2+. Neurological: A&O x 3. CN II-XII intact, There are no obvious motor or sensory deficits. Coordination appears grossly intact. Speech is normal. Skin: Skin is warm and dry and no rashes or lesions are noted. Psychiatric: Cooperative, appropriate mood & affect, normal judgment. Limitations: no limitations Course Vital Signs 05/05/18 16:54 Temperature 98.2 F Pulse Rate 85 Respiratory 18 Rate Blood Pressure 151/73 O2 Sat by Pulse 96 Oximetry Medical Decision Making - Medical Decision Making Ultrasound reviewed negative for any evidence of a DVT. Results were discussed with the patient. Patient advised to use ibuprofen and heat to the area. Advised to follow-up with family physician over the next 2 days or return here to emergency room if any symptoms increase or worsen. Disposition Clinical Impression: Strain of calf muscle Disposition: HOME SELF-CARE Condition: Good Instructions: Muscle Strain (ED) Additional Instructions: Please use medication as discussed. Please follow-up with family doctor in the next 2 days of symptoms have not improved. Please return to emergency room if the symptoms increase or worsen or for any other concerns. Is patient prescribed a controlled substance at d/c from ED?: No Referrals: Rashaun Francis MD [Primary Care Provider] - 1-2 days Time of Disposition: 17:59
--- NOTE | 2018-05-05 17:55 | US ---
EXAMINATION TYPE: US venous doppler duplex LE RT DATE OF EXAM: 05/05/2018 5:42 PM COMPARISON: NONE CLINICAL HISTORY: Pain. Pain. SIDE PERFORMED: Right TECHNIQUE: The lower extremity deep venous system is examined utilizing real time linear array sonog tawnya with graded compression, doppler sonography and color-flow sonography. VESSELS IMAGED: External Iliac Vein (EIV) Common Femoral Vein Deep Femoral Vein Greater Saphenous Vein * Femoral Vein Popliteal Vein Small Saphenous Vein * Proximal Calf Veins (* superficial vessels) Right Leg: Negative for DVT No evidence of DVT right leg. IMPRESSION: Normal right leg duplex venous sonogram.
== END 2018-05-05 18:24 | disposition home or self-care (01) ==
LOC: EC 15:26
DX: S86.911A Strain of unspecified muscle(s) and tendon(s) at lower leg level, right leg, initial encounter (principal); M54.9 Dorsalgia, unspecified; J45.909 Unspecified asthma, uncomplicated; F17.200 Nicotine dependence, unspecified, uncomplicated; Z90.710 Acquired absence of both cervix and uterus; Z79.51 Long term (current) use of inhaled steroids; Z79.899 Other long term (current) drug therapy; Z88.5 Allergy status to narcotic agent; Z91.012 Allergy to eggs; X58.XXXA Exposure to other specified factors, initial encounter
CPT/HCPCS: 99283

== ENCOUNTER 2018-10-12 17:27 | Emergency (ER) | payer OTHER ==
[2018-10-12 17:37] VITALS: RESP 16
[2018-10-12] MEDS ORDERED: ONDANSETRON 4 MG/2 ML VIAL IVP STA (18:01)
[2018-10-12] MEDS ORDERED: SODIUM CHLORIDE 0.9% 1,000 ML IV ONE (18:01)
[2018-10-12] MEDS ORDERED: MECLIZINE 12.5 MG TAB PO STA (18:01)
[2018-10-12 18:27] LABS: Basophils % (A) 0 %; Eosinophils # (A) 0.3 k/uL (0-0.7); Eosinophils % (A) 5 %; HCT 37.5 % (34.0-46.0); HGB 12.8 gm/dL (11.4-16.0); Lymphocytes # (A) 2.1 k/uL (1.0-4.8); Lymphocytes % (A) 35 %; MCH 30.9 pg (25.0-35.0); MCHC 34.1 g/dL (31.0-37.0); MCV 90.8 fL (80.0-100.0); Mean Platelet Volume 6.2; Monocytes # (A) 0.3 k/uL (0-1.0); Monocytes % (A) 5 %; Neutrophils # (A) 3.2 k/uL (1.3-7.7); Neutrophils % (A) 52 %; Platelet Count 335 k/uL (150-450); RBC 4.13 m/uL (3.80-5.40); RDW 13.3 % (11.5-15.5); WBC 6.1 k/uL (3.8-10.6)
--- NOTE | 2018-10-12 18:30 | ED ---
Dizziness HPI - General Chief Complaint: Dizziness Stated Complaint: Dizziness Time Seen by Provider: 10/12/18 17:45 Source: patient Mode of arrival: wheelchair Limitations: no limitations - History of Present Illness Initial Comments: Is a 38-year-old female with a history of fibromyalgia who presents emergency department for dizziness and lightheadedness. The patient states is been going on since yesterday. She states that anytime she stands up she experiences a sensation that she may pass out and also feels like the room is moving around her. She states that she's had vertigo previously however this feels a little bit different. She states that she also has had a new right-sided headache that she describes as achy and not severe in nature. She does have a history of headaches however this was a little bit different as well. She has some paresthesias that run down her arms and legs however no focal weakness. She states that she's been able to ambulate however states that she feels off balance. The patient has had these symptoms previously. She sees Dr. Gallagher however was unable to schedule an MRI because of her work schedule. She has yet to reschedule at this time. She denies any chest pain or shortness of breath. She denies any nausea, vomiting, or diarrhea. She states that she has been urinating more than normal however no dysuria. No fevers or chills. No acute complaints. - Related Data Home Medications Medication Instructions Recorded Confirmed Montelukast Sodium [Singulair] 10 mg PO DAILY 05/14/14 10/12/18 Albuterol Inhaler [Ventolin Hfa 1 - 2 puff INHALATION RT-Q4H PRN 10/24/16 10/12/18 Inhaler] Estradiol 2 mg PO DAILY 10/24/16 10/12/18 Loratadine [Claritin] 10 mg PO DAILY 01/07/18 10/12/18 Albuterol Nebulized [Ventolin 2.5 mg INHALATION RT-QID PRN 10/12/18 10/12/18 Nebulized] DULoxetine HCL [Cymbalta] 30 mg PO DAILY 10/12/18 10/12/18 Fluticasone/Salmeterol [Airduo 1 puff INHALATION RT-BID 10/12/18 10/12/18 Respiclick 113-14 Mcg] Multivitamin [Multivitamins Adult 2 tab PO DAILY 10/12/18 10/12/18 Gummies] Previous Rx's Medication Instructions Recorded Meclizine [Antivert] 25 mg PO TID PRN #20 tab 10/12/18 Allergies Allergy/AdvReac Type Severity Reaction Status Date / Time hydrocodone bitartrate AdvReac Vomiting Verified 10/12/18 18:12 [From Vicodin] eggplant Allergy Unknown Uncoded 10/12/18 17:37 Review of Systems ROS Statement: Those systems with pertinent positive or pertinent negative responses have been documented in the HPI. ROS Other: All systems not noted in ROS Statement are negative. Past Medical History Past Medical History: Asthma Additional Past Medical History / Comment(s): seasonal allergies History of Any Multi-Drug Resistant Organisms: None Reported Past Surgical History: Section, Hysterectomy Past Psychological History: Depression Smoking Status: Current every day smoker Past Alcohol Use History: Occasional Past Drug Use History: None Reported General Exam - General Exam Comments Initial Comments: Constitutional: Awake alert Appears comfortable Head: Normocephalic atraumatic Eyes: no conjunctival injection No scleral icterus EOMI, pupils are 4 mm and re active bilaterally, no nystagmus Neck: No JVD Supple, no meningismus Heart: Regular rate rhythm normal S1-S2 no murmurs Lungs: Clear to auscultation bilaterally No wheezing No rales Abdomen: Soft nondistended nontender Extremities: Non edematous DP pulses intact Radial pulses intact Neuro: A&Ox3, cranial nerves II through XII are grossly intact, 5 out of 5 strength in upper and lower extremities bilaterally, no ataxia finger to nose testing, negative Romberg's test, patient was able to stand up and ambulate under her own power No focal neurologic deficits Psych: Appropriate mood and affect Limitations: no limitations Course Vital Signs 10/12/18 10/12/18 17:35 20:09 Temperature 98.2 F 97.9 F Pulse Rate 76 59 L Respiratory 16 16 Rate Blood Pressure 121/76 108/67 O2 Sat by Pulse 97 98 Oximetry EKG Findings - EKG Comments: EKG Findings:: EKG showing normal sinus rhythm with a rate of 69. There is no abnormal ST segment changes or T-wave inversions. QTC is 435. Other intervals normal. No ectopy. Medical Decision Making - Medical Decision Making This is a 38 yo female who presents to ED for dizziness and lightheadedness. The patient had no neurologic abnormlities on examination. CT of the head was unchanged. Blood work was unremarkable. UA neg and U preg negative. Pt felt improved after Zofran, Antivert, and Fluids. Was asking for work note at the end of visit which was provided. She is to f/u with Dr. Gallagher for set up of MRI. Return to eD for worsening or reoccurring symptoms. - Lab Data Result diagrams: 10/12/18 18:20 10/12/18 18:20 Lab Results 10/12/18 10/12/18 10/12/18 Range/Units 18:20 18:20 18:32 WBC 6.1 (3.8-10.6) k/uL RBC 4.13 (3.80-5.40) m/uL Hgb 12.8 (11.4-16.0) gm/dL Hct 37.5 (34.0-46.0) % MCV 90.8 (80.0-100.0) fL MCH 30.9 (25.0-35.0) pg MCHC 34.1 (31.0-37.0) g/dL RDW 13.3 (11.5-15.5) % Plt Count 335 (150-450) k/uL Neutrophils % 52 % Lymphocytes % 35 % Monocytes % 5 % Eosinophils % 5 % Basophils % 0 % Neutrophils # 3.2 (1.3-7.7) k/uL Lymphocytes # 2.1 (1.0-4.8) k/uL Monocytes # 0.3 (0-1.0) k/uL Eosinophils # 0.3 (0-0.7) k/uL Basophils # 0.0 (0-0.2) k/uL Sodium 139 (137-145) mmol/L Potassium 5.0 (3.5-5.1) mmol/L Chloride 106 (98-107) mmol/L Carbon Dioxide 28 (22-30) mmol/L Anion Gap 5 mmol/L BUN 13 (7-17) mg/dL Creatinine 0.63 (0.52-1.04) mg/dL Est GFR (CKD-EPI)AfAm >90 (>60 ml/min/1.73 sqM) Est GFR (CKD-EPI)NonAf >90 (>60 ml/min/1.73 sqM) Glucose 89 (74-99) mg/dL Calcium 9.7 (8.4-10.2) mg/dL Magnesium 1.9 (1.6-2.3) mg/dL Total Bilirubin 0.3 (0.2-1.3) mg/dL AST 18 (14-36) U/L ALT 20 (9-52) U/L Alkaline Phosphatase 62 (38-126) U/L Total Protein 6.5 (6.3-8.2) g/dL Albumin 3.8 (3.5-5.0) g/dL Urine Color Urine Appearance (Clear) Urine pH (5.0-8.0) Ur Specific [place] (1.001-1.035) Urine Protein (Negative) Urine Glucose (UA) (Negative) Urine Ketones (Negative) Urine Blood (Negative) Urine Nitrite (Negative) Urine Bilirubin (Negative) Urine Urobilinogen (<2.0) mg/dL Ur Leukocyte Esterase (Negative) Urine HCG, Qual Not Detected (Not Detectd) 10/12/18 Range/Units 18:32 WBC (3.8-10.6) k/uL RBC (3.80-5.40) m/uL Hgb (11.4-16.0) gm/dL Hct (34.0-46.0) % MCV (80.0-100.0) fL MCH (25.0-35.0) pg MCHC (31.0-37.0) g/dL RDW (11.5-15.5) % Plt Count (150-450) k/uL Neutrophils % % Lymphocytes % % Monocytes % % Eosinophils % % Basophils % % Neutrophils # (1.3-7.7) k/uL Lymphocytes # (1.0-4.8) k/uL Monocytes # (0-1.0) k/uL Eosinophils # (0-0.7) k/uL Basophils # (0-0.2) k/uL Sodium (137-145) mmol/L Potassium (3.5-5.1) mmol/L Chloride (98-107) mmol/L Carbon Dioxide (22-30) mmol/L Anion Gap mmol/L BUN (7-17) mg/dL Creatinine (0.52-1.04) mg/dL Est GFR (CKD-EPI)AfAm (>60 ml/min/1.73 sqM) Est GFR (CKD-EPI)NonAf (>60 ml/min/1.73 sqM) Glucose (74-99) mg/dL Calcium (8.4-10.2) mg/dL Magnesium (1.6-2.3) mg/dL Total Bilirubin (0.2-1.3) mg/dL AST (14-36) U/L ALT (9-52) U/L Alkaline Phosphatase (38-126) U/L Total Protein (6.3-8.2) g/dL Albumin (3.5-5.0) g/dL Urine Color Yellow Urine Appearance Clear (Clear) Urine pH 6.0 (5.0-8.0) Ur Specific [place] 1.024 (1.001-1.035) Urine Protein Negative (Negative) Urine Glucose (UA) Negative (Negative) Urine Ketones Negative (Negative) Urine Blood Negative (Negative) Urine Nitrite Negative (Negative) Urine Bilirubin Negative (Negative) Urine Urobilinogen <2.0 (<2.0) mg/dL Ur Leukocyte Esterase Negative (Negative) Urine HCG, Qual (Not Detectd) Disposition Clinical Impression: Dizziness Disposition: HOME SELF-CARE Condition: Stable Instructions (If sedation given, give patient instructions): Dizziness (ED) Prescriptions: Meclizine [Antivert] 25 mg PO TID PRN #20 tab PRN Reason: dizziness Is patient prescribed a controlled substance at d/c from ED?: No Referrals: Rashaun Francis MD [Primary Care Provider] - 1-2 days
--- NOTE | 2018-10-12 18:34 | CT ---
EXAMINATION TYPE: CT brain wo con DATE OF EXAM: 10/12/2018 COMPARISON: 10/24/2016 HISTORY: dizziness, nausea, changes in vision CT DLP: 1103.4 mGycm. Automated Exposure Control for Dose Reduction was Utilized. TECHNIQUE: CT scan of the head is performed without contrast. FINDINGS: Ventricles and sulci appear normal. There is no mass effect nor midline shift. There is no sign of intracranial hemorrhage. The calvarium is intact. Impression new. Negative head CT scan. No change.
[2018-10-12 18:37] LABS: ALT 20 U/L (9-52); AST 18 U/L (14-36); Albumin 3.8 g/dL (3.5-5.0); Alkaline Phosphatase 62 U/L (38-126); Anion Gap 5 mmol/L; Blood Urea Nitrogen 13 mg/dL (7-17); Calcium 9.7 mg/dL (8.4-10.2); Carbon Dioxide 28 mmol/L (22-30); Chloride 106 mmol/L (98-107); Glucose 89 mg/dL (74-99); Magnesium 1.9 mg/dL (1.6-2.3); Sodium 139 mmol/L (137-145); Total Bilirubin 0.3 mg/dL (0.2-1.3); Total Protein 6.5 g/dL (6.3-8.2)
[2018-10-12 18:38] LABS: Appearance,Urine Clear (Clear); Bilirubin,Urine Negative (Negative); Blood,Urine Negative (Negative); Color,Urine Yellow; Glucose,Urine (UA) Negative (Negative); Ketones,Urine Negative (Negative); Leukocyte Esterase,Urine Negative (Negative); Nitrite,Urine Negative (Negative); Protein,Urine Negative (Negative); Specific Gravity,Urine 1.024 (1.001-1.035); Urobilinogen,Urine <2.0 mg/dL (<2.0)
[2018-10-12 20:11] VITALS: BP 108/67; PULSE 59; TEMP 97.9
== END 2018-10-12 20:14 | disposition home or self-care (01) ==
LOC: EC 17:27
DX: R42 Dizziness and giddiness (principal); R51 Headache; R20.2 Paresthesia of skin; R35.0 Frequency of micturition; M79.7 Fibromyalgia; J45.909 Unspecified asthma, uncomplicated; F32.9 Major depressive disorder, single episode, unspecified; F17.200 Nicotine dependence, unspecified, uncomplicated; Z79.890 Hormone replacement therapy; Z79.51 Long term (current) use of inhaled steroids; Z79.899 Other long term (current) drug therapy; Z88.5 Allergy status to narcotic agent; Z91.018 Allergy to other foods
CPT/HCPCS: 36415; 93005; 80053; 83735; 85025; 81003; 81025; 70450; 99284; 96374; 96361 ×2; J2405

== ENCOUNTER 2019-02-06 12:19 | Emergency (ER) | payer OTHER ==
[2019-02-06 12:46] VITALS: RESP 18
--- NOTE | 2019-02-06 15:02 | XR ---
EXAMINATION TYPE: XR cervical spine comp DATE OF EXAM: 02/06/2019 TECHNIQUE: Frontal, lateral, oblique, swimmers, and open mouth view of the cervical spine are obtaine d. HISTORY: Neck pain COMPARISON: None FINDINGS: The cervical spine is visualized in its entirety from C1 thru the top of T1 level, it is s atisfactory in alignment without evidence of acute fracture or dislocation. The pre-vertebral soft t issue appears within normal limits. The C1-C2 articulation is within normal limits on the open mouth view. The oblique images are within normal limits. There is straightening of usual cervical lordosi s. IMPRESSION: No acute fracture or dislocation is seen in the cervical spine. Ringing of the usual cer vical lordosis may be on the basis of muscular sprain/spasm or patient positioning.
--- NOTE | 2019-02-06 15:14 | ED ---
General Adult HPI - General Chief complaint: Neck Pain/Injury Stated complaint: back/arm pain Time Seen by Provider: 02/06/19 14:12 Source: patient Mode of arrival: ambulatory Limitations: no limitations - History of Present Illness Initial comments: Patient is a 38-year-old female with history of fibromyalgia is presenting to the emergency department with a chief complaint of neck pain. Patient reports she has developed neck pain of the past few days. Patient reports she woke up this morning with neck pain that was radiating bilaterally on the upper tremors. Patient reports tingling in bilateral upper extremities. Patient does report mild neck stiffness in the morning but does have full range of motion currently. Patient reports the pain is exacerbated with neck extension. Patient denies any fevers last visit chills. Patient denies any nausea or vomiting. Patient denies any headaches, chest pain or chest tightness. Patient denies any other complaints. - Related Data Home Medications Medication Instructions Recorded Confirmed Montelukast Sodium [Singulair] 10 mg PO DAILY 05/14/14 10/12/18 Albuterol Inhaler [Ventolin Hfa 1 - 2 puff INHALATION RT-Q4H PRN 10/24/16 10/12/18 Inhaler] Estradiol 2 mg PO DAILY 10/24/16 10/12/18 Loratadine [Claritin] 10 mg PO DAILY 01/07/18 10/12/18 Albuterol Nebulized [Ventolin 2.5 mg INHALATION RT-QID PRN 10/12/18 10/12/18 Nebulized] DULoxetine HCL [Cymbalta] 30 mg PO DAILY 10/12/18 10/12/18 Fluticasone/Salmeterol [Airduo 1 puff INHALATION RT-BID 10/12/18 10/12/18 Respiclick 113-14 Mcg] Multivitamin [Multivitamins Adult 2 tab PO DAILY 10/12/18 10/12/18 Gummies] Previous Rx's Medication Instructions Recorded Meclizine [Antivert] 25 mg PO TID PRN #20 tab 10/12/18 Cyclobenzaprine [Flexeril] 10 mg PO TID PRN #15 tab 02/06/19 Allergies Allergy/AdvReac Type Severity Reaction Status Date / Time hydrocodone bitartrate AdvReac Vomiting Verified 10/12/18 18:12 [From Vicodin] eggplant Allergy Unknown Uncoded 10/12/18 17:37 Review of Systems ROS Statement: Those systems with pertinent positive or pertinent negative responses have been documented in the HPI. ROS Other: All systems not noted in ROS Statement are negative. Past Medical History Past Medical History: Asthma, Fibromyalgia Additional Past Medical History / Comment(s): seasonal allergies History of Any Multi-Drug Resistant Organisms: None Reported Past Surgical History: Section, Hysterectomy Past Psychological History: Depression Smoking Status: Current every day smoker Past Alcohol Use History: Occasional Past Drug Use History: None Reported General Exam Limitations: no limitations General appearance: alert, in no apparent distress, obese Head exam: Present: atraumatic, normocephalic, normal inspection Eye exam: Present: normal appearance, PERRL, EOMI Pupils: Present: normal accommodation ENT exam: Present: normal exam, normal oropharynx, mucous membranes moist, TM's normal bilaterally, normal external ear exam Neck exam: Present: normal inspection, tenderness (Tenderness along the trapezius bilaterally), full ROM. Absent: lymphadenopathy, other (Negative Brudzinski, negative meningismus) Respiratory exam: Present: normal lung sounds bilaterally Cardiovascular Exam: Present: regular rate, normal rhythm, normal heart sounds GI/Abdominal exam: Present: soft, normal bowel sounds. Absent: tenderness, guarding Extremities exam: Present: normal inspection, full ROM, normal capillary refill, other (+2 ulnar and radial pulses bilaterally.) Back exam: Present: normal inspection, full ROM Neurological exam: Present: alert, oriented X3, CN II-XII intact, other (5 out of 5 strength in upper extremities bilaterally.). Absent: motor sensory deficit Psychiatric exam: Present: normal affect, normal mood Skin exam: Present: warm, intact, normal color Course Vital Signs 02/06/19 02/06/19 12:44 15:51 Temperature 98.1 F 98.0 F Pulse Rate 84 80 Respiratory 18 18 Rate Blood Pressure 114/64 118/72 O2 Sat by Pulse 98 99 Oximetry Medical Decision Making - Medical Decision Making Patient is a 38-year-old female with history of fibromyalgia is presenting to emergency Department with a chief complaint of neck pain. Patient reports neck stiffness or past few days. On evaluation patient appears to have full range of motion and neck with no crepitus. Patient does report pain with full extension. Patient does report tingling on bilateral upper extremities. On physical examination patient is neurovascularly intact. X-ray of the cervical spine is negative for acute fracture or dislocations. Ringing of the usual cervical lordosis may be the basis for the cause of the swelling, spasms. Patient does appear to lack lordosis in the neck. Patient does have pain over the bilateral trapezius. I suspect the bilateral upper extremity tingling to be caused by cervical radiculopathy. However, the neck stiffness appears to be more muscle strain. I have low suspicion for angitis. Patient does not appear toxic or febrile. Strict return parameters were thoroughly discussed the patient was understanding and agreeable. Case discussed with physician. Disposition Clinical Impression: Strain of neck muscle Disposition: HOME SELF-CARE Condition: Stable Instructions (If sedation given, give patient instructions): Cervical Sprain (ED) Additional Instructions: Please see prescribe medication as directed. Please follow with primary care. Please return to emergency department if symptoms worsen. Prescriptions: Cyclobenzaprine [Flexeril] 10 mg PO TID PRN #15 tab PRN Reason: Muscle Spasm Is patient prescribed a controlled substance at d/c from ED?: No Referrals: Rashaun Francis MD [Primary Care Provider] - 1-2 days Time of Disposition: 15:42
[2019-02-06] MEDS ORDERED: CYCLOBENZAPRINE 10MG STARTER 3 TAB BTL PO STA (15:42)
[2019-02-06 15:53] VITALS: BP 118/72; PULSE 80; TEMP 98
== END 2019-02-06 15:56 | disposition home or self-care (01) ==
LOC: EC 12:19
DX: S16.1XXA Strain of muscle, fascia and tendon at neck level, initial encounter (principal); J45.909 Unspecified asthma, uncomplicated; M79.7 Fibromyalgia; F32.9 Major depressive disorder, single episode, unspecified; F17.200 Nicotine dependence, unspecified, uncomplicated; Z79.890 Hormone replacement therapy; Z79.51 Long term (current) use of inhaled steroids; Z79.899 Other long term (current) drug therapy; Z88.5 Allergy status to narcotic agent; Z91.018 Allergy to other foods
CPT/HCPCS: 72050; 99283

== ENCOUNTER 2019-07-02 19:49 | Emergency (ER) | payer OTHER ==
--- NOTE | 2019-07-02 21:26 | ED ---
ENT HPI - General Chief complaint: ENT Stated complaint: Headache, Ear Pain Time Seen by Provider: 07/02/19 21:22 Source: patient Mode of arrival: ambulatory Limitations: no limitations - History of Present Illness Initial comments: Cici is a 39-year-old female with a history of asthma who presents to the emergency department today for evaluation of sinus pressure and ear pain. Patient reports that she woke up today experiencing sinus pressure and somewhat of a sore throat no fevers chills chest pain or shortness of breath. She reports that this evening she went out shopping and began having worsening headache and stabbing like pain in both ears which prompted her to come the ER for further evaluation. Patient states that because her asthma she does take Singulair and Claritin as well as an inhaler but does not use any nasal sprays. She has no history of ear infections or tympanostomy tubes in the past. - Related Data Home Medications Medication Instructions Recorded Confirmed Montelukast Sodium [Singulair] 10 mg PO DAILY 05/14/14 10/12/18 Albuterol Inhaler [Ventolin Hfa 1 - 2 puff INHALATION RT-Q4H PRN 10/24/16 10/12/18 Inhaler] Estradiol 2 mg PO DAILY 10/24/16 10/12/18 Loratadine [Claritin] 10 mg PO DAILY 01/07/18 10/12/18 Albuterol Nebulized [Ventolin 2.5 mg INHALATION RT-QID PRN 10/12/18 10/12/18 Nebulized] DULoxetine HCL [Cymbalta] 30 mg PO DAILY 10/12/18 10/12/18 Fluticasone/Salmeterol [Airduo 1 puff INHALATION RT-BID 10/12/18 10/12/18 Respiclick 113-14 Mcg] Multivitamin [Multivitamins Adult 2 tab PO DAILY 10/12/18 10/12/18 Gummies] Previous Rx's Medication Instructions Recorded Meclizine [Antivert] 25 mg PO TID PRN #20 tab 10/12/18 Cyclobenzaprine [Flexeril] 10 mg PO TID PRN #15 tab 02/06/19 Fluticasone Nasal [place] [Flonase 2 spr EA NOSTRIL DAILY #1 bottle 07/02/19 Nasal [place]] Allergies Allergy/AdvReac Type Severity Reaction Status Date / Time hydrocodone bitartrate AdvReac Vomiting Verified 07/02/19 20:28 [From Vicodin] eggplant Allergy Unknown Uncoded 07/02/19 20:28 Review of Systems ROS Statement: Those systems with pertinent positive or pertinent negative responses have been documented in the HPI. ROS Other: All systems not noted in ROS Statement are negative. Past Medical History Past Medical History: Asthma, Fibromyalgia Additional Past Medical History / Comment(s): seasonal allergies History of Any Multi-Drug Resistant Organisms: None Reported Past Surgical History: Section, Hysterectomy Past Psychological History: Depression Smoking Status: Current every day smoker Past Alcohol Use History: Occasional Past Drug Use History: None Reported General Exam - General Exam Comments Initial Comments: Physical Exam GENERAL: Patient is well-developed and well-nourished. Patient is nontoxic and well- hydrated and is in no distress. HENT: Normocephalic, Atraumatic. TMs bulging bilaterally, no erythema, no purulent fluid EYES: PERRL, EOMI PULMONARY: Unlabored respirations. No audible rales rhonchi or wheezing was noted. CARDIOVASCULAR: There is a regular rate and rhythm without any murmurs gallops or rubs. ABDOMEN: Nondistended SKIN: Skin is clear with no lesions or rashes and otherwise unremarkable. : Deferred NEUROLOGIC: Patient is alert and oriented x3. Moving all extremities spontaneously MUSCULOSKELETAL: Normal extremities with adequate strength and full range of motion. No lower extremity swelling or edema. No calf tenderness. PSYCHIATRIC: Normal psychiatric evaluation. Limitations: no limitations Course Vital Signs 07/02/19 20:26 Temperature 97.4 F L Pulse Rate 78 Respiratory 16 Rate Blood Pressure 141/85 O2 Sat by Pulse 97 Oximetry Medical Decision Making - Medical Decision Making The patient was seen and evaluated, history is obtained from the patient and significant other bed side. History and physical exam are concerning for likely viral URIof ear infection. No meningeal signs. Vital signs are stable. At this time patient will be discharged home with Flonase discussed [id number] relief, discussed the importance of flu vaccine. Patient discharged home in stable condition. Disposition Clinical Impression: URI (upper respiratory infection) Disposition: HOME SELF-CARE Condition: Stable Instructions (If sedation given, give patient instructions): Earache (ED), Viral Syndrome (ED) Prescriptions: Fluticasone Nasal [place] [Flonase Nasal [place]] 2 spr EA NOSTRIL DAILY #1 bottle Is patient prescribed a controlled substance at d/c from ED?: No Referrals: Rashaun Francis MD [Primary Care Provider] - 1-2 days
[2019-07-02 22:14] VITALS: BP 125/66; PULSE 73; RESP 18; TEMP 97.9
== END 2019-07-02 22:12 | disposition home or self-care (01) ==
LOC: EC 19:49
DX: J06.9 Acute upper respiratory infection, unspecified (principal); J45.909 Unspecified asthma, uncomplicated; M79.7 Fibromyalgia; F32.9 Major depressive disorder, single episode, unspecified; F17.200 Nicotine dependence, unspecified, uncomplicated; Z88.8 Allergy status to other drugs, medicaments and biological substances; Z91.018 Allergy to other foods; Z79.51 Long term (current) use of inhaled steroids; Z79.890 Hormone replacement therapy; Z79.899 Other long term (current) drug therapy; Z91.048 Other nonmedicinal substance allergy status
CPT/HCPCS: 99283

== ENCOUNTER 2020-06-28 14:03 | Emergency (ER) | payer OTHER ==
[2020-06-28 14:19] VITALS: BP 113/76; PULSE 64; RESP 18; TEMP 97.9
--- NOTE | 2020-06-28 14:31 | ED ---
Back Pain [facility] - General Chief Complaint: Back Pain/Injury Stated Complaint: Back Pain Time Seen by Provider: 06/28/20 14:27 Source: patient Limitations: no limitations - History of Present Illness Initial Comments: 40-year-old female history of chronic back pain presenting to emergency Department with a chief for the back pain. Patient reports she is developed back pain over the last 5 days and the lumbosacral region with occasional radiation to the groin on the right side. Patient states she does have history of kidney stones but this doesn't necessarily feel like it. She states this feels like her typical back pain with an acute exacerbation. States that [id number] analgesics typically work well for the pain but at this time. She denies dysuria, increased urgency or frequency. Denies hematuria, medication related. Denies any chest pain or shortness of breath. She denies any saddle anesthesia, urinary retention with overflow incontinence or bowel incontinence. Denies any radiculopathy type symptoms. - Related Data Home Medications Medication Instructions Recorded Confirmed Montelukast Sodium [Singulair] 10 mg PO DAILY 05/14/14 10/12/18 Albuterol Inhaler (Mhu) [Ventolin 1 - 2 puff INHALATION RT-Q4H PRN 10/24/16 10/12/18 Hfa Inhaler] Estradiol 2 mg PO DAILY 10/24/16 10/12/18 Loratadine [Claritin] 10 mg PO DAILY 01/07/18 10/12/18 Albuterol Nebulized [Ventolin 2.5 mg INHALATION RT-QID PRN 10/12/18 10/12/18 Nebulized] DULoxetine HCL [Cymbalta] 30 mg PO DAILY 10/12/18 10/12/18 Fluticasone/Salmeterol [Airduo 1 puff INHALATION RT-BID 10/12/18 10/12/18 Respiclick 113-14 Mcg] Multivitamin [Multivitamins Adult 2 tab PO DAILY 10/12/18 10/12/18 Gummies] Previous Rx's Medication Instructions Recorded Meclizine [Antivert] 25 mg PO TID PRN #20 tab 10/12/18 Cyclobenzaprine [Flexeril] 10 mg PO TID PRN #15 tab 02/06/19 Fluticasone Nasal [place] [Flonase 2 spr EA NOSTRIL DAILY #1 bottle 07/02/19 Nasal [place]] Cyclobenzaprine [Flexeril] 10 mg PO TID PRN #15 tab 06/28/20 Allergies Allergy/AdvReac Type Severity Reaction Status Date / Time hydrocodone bitartrate AdvReac Vomiting Verified 06/28/20 14:19 [From Vicodin] eggplant Allergy Unknown Uncoded 06/28/20 14:19 Review of Systems ROS Statement: Those systems with pertinent positive or pertinent negative responses have been documented in the HPI. ROS Other: All systems not noted in ROS Statement are negative. Past Medical History Past Medical History: Asthma, Fibromyalgia Additional Past Medical History / Comment(s): seasonal allergies History of Any Multi-Drug Resistant Organisms: None Reported Past Surgical History: Section, Hysterectomy Past Psychological History: Depression Smoking Status: Current some day smoker Past Alcohol Use History: Occasional Past Drug Use History: Marijuana General Exam Limitations: no limitations General appearance: alert, in no apparent distress, obese Head exam: Present: atraumatic, normocephalic, normal inspection Eye exam: Present: normal appearance, PERRL, EOMI Pupils: Present: normal accommodation ENT exam: Present: normal exam, normal oropharynx, mucous membranes moist Neck exam: Present: normal inspection, full ROM. Absent: tenderness Respiratory exam: Present: normal lung sounds bilaterally. Absent: respiratory distress, wheezes, rales Cardiovascular Exam: Present: regular rate, normal rhythm, normal heart sounds GI/Abdominal exam: Present: soft. Absent: distended, tenderness, guarding, rebound Extremities exam: Present: normal inspection, full ROM, normal capillary refill Back exam: Present: normal inspection, full ROM, paraspinal tenderness (Bilateral paraspinal tenderness in the lumbosacral region.). Absent: tenderness, CVA tenderness (R), CVA tenderness (L), vertebral tenderness Neurological exam: Present: alert, oriented X3, normal gait Psychiatric exam: Present: normal affect, normal mood Skin exam: Present: warm, dry, intact, normal color Course Vital Signs 06/28/20 14:14 Temperature 97.9 F Pulse Rate 64 Respiratory 18 Rate Blood Pressure 113/76 O2 Sat by Pulse 96 Oximetry Medical Decision Making - Medical Decision Making 40-year-old female presenting to the emergency Department chief complaint of back pain. On physical examination, patient has bilateral paraspinal tenderness in the lumbosacral region. No concern for cauda equina. UA is unremarkable. Patient not . Patient given Lidoderm patches, Toradol and Flexeril. She'll be discharged with Flexeril and a Tylenol 3 starter pack. Patient advised not to take the medications together. On reevaluation, patient reports improvement in symptoms. She was advised to follow with an operations specialist. Return parameters were thoroughly discussed with patient is an attending agreeable. Case discussed physician. - Lab Data Lab Results 06/28/20 06/28/20 Range/Units 14:55 14:55 Urine Color Yellow Urine Appearance Clear (Clear) Urine pH 5.0 (5.0-8.0) Ur Specific [place] 1.023 (1.001-1.035) Urine Protein Negative (Negative) Urine Glucose (UA) Negative (Negative) Urine Ketones Negative (Negative) Urine Blood Negative (Negative) Urine Nitrite Negative (Negative) Urine Bilirubin Negative (Negative) Urine Urobilinogen <2.0 (<2.0) mg/dL Ur Leukocyte Esterase Negative (Negative) Urine HCG, Qual Not Detected (Not Detectd) Disposition Clinical Impression: Mechanical back pain, Strain of lumbar region Disposition: HOME SELF-CARE Condition: Stable Instructions (If sedation given, give patient instructions): Acute Low Back Pain (ED) Additional Instructions: Take prescribed medication as directed. Follow-up with physical therapy primary care physician. Discharge instructions. Prescriptions: Cyclobenzaprine [Flexeril] 10 mg PO TID PRN #15 tab PRN Reason: Muscle Spasm Is patient prescribed a controlled substance at d/c from ED?: No Referrals: Rashaun Francis MD [Primary Care Provider] - 1-2 days Time of Disposition: 15:36
[2020-06-28] MEDS ORDERED: LIDOCAINE 5% PATCH TOPICAL STA (15:08)
[2020-06-28 15:29] LABS: Appearance,Urine Clear (Clear); Bilirubin,Urine Negative (Negative); Blood,Urine Negative (Negative); Color,Urine Yellow; Glucose,Urine (UA) Negative (Negative); Ketones,Urine Negative (Negative); Leukocyte Esterase,Urine Negative (Negative); Nitrite,Urine Negative (Negative); Protein,Urine Negative (Negative); Specific Gravity,Urine 1.023 (1.001-1.035); Urobilinogen,Urine <2.0 mg/dL (<2.0)
[2020-06-28] MEDS ORDERED: KETOROLAC 15 MG/ML 1 ML VIAL IM STA (15:31)
[2020-06-28] MEDS ORDERED: ACET/COD 300 MG/30 MG STARTER PACK 6 TAB BTL PO STA (15:35)
[2020-06-28] MEDS ORDERED: CYCLOBENZAPRINE 10 MG TAB PO STA (15:35)
== END 2020-06-28 15:53 | disposition home or self-care (01) ==
LOC: EC 14:03
DX: S39.012A Strain of muscle, fascia and tendon of lower back, initial encounter (principal); J45.909 Unspecified asthma, uncomplicated; M79.7 Fibromyalgia; F32.9 Major depressive disorder, single episode, unspecified; F17.200 Nicotine dependence, unspecified, uncomplicated; Z91.09 Other allergy status, other than to drugs and biological substances; Z79.51 Long term (current) use of inhaled steroids; Z79.899 Other long term (current) drug therapy; Z79.890 Hormone replacement therapy; Z88.5 Allergy status to narcotic agent; X58.XXXA Exposure to other specified factors, initial encounter
CPT/HCPCS: 81003; 81025; 99283; 96372; J1885

== ENCOUNTER 2021-09-02 18:25 | Emergency (ER) | payer OTHER ==
[2021-09-02 19:06] VITALS: BP 115/76; PULSE 95; RESP 18; TEMP 97.9
[2021-09-02 19:27] LABS: Appearance,Urine Clear (Clear); Bilirubin,Urine Negative (Negative); Blood,Urine Negative (Negative); Color,Urine Yellow; Glucose,Urine (UA) Negative (Negative); Ketones,Urine Trace (Negative); Leukocyte Esterase,Urine Negative (Negative); Nitrite,Urine Negative (Negative); Protein,Urine Trace (Negative); Specific Gravity,Urine 1.032 (1.001-1.035)
== END 2021-09-02 21:34 | disposition left against medical advice (07) ==
LOC: EC 18:25
DX: Z53.21 Procedure and treatment not carried out due to patient leaving prior to being seen by health care provider (principal)
CPT/HCPCS: 81003; 99499

== ENCOUNTER 2022-06-16 18:13 | Emergency (ER) | payer OTHER ==
[2022-06-16 18:24] VITALS: TEMP 98.2
[2022-06-16] MEDS ORDERED: KETOROLAC 15 MG/ML 1 ML VIAL IM STA (19:21)
[2022-06-16] MEDS ORDERED: IPRATROPIUM-ALBUTEROL 3 ML NEB INHALATION STA (19:21)
--- NOTE | 2022-06-16 19:48 | XR ---
EXAMINATION TYPE: XR lumbar spine 2 or 3V DATE OF EXAM: 06/16/2022 7:43 PM INDICATION: Patient age:Female; 42 years old; Reason for study: injury, pain with weightbearing; COMPARISON: None TECHNIQUE: Frontal, lateral and coned in L5-S1 lateral views of the spine. FINDINGS: No evidence of any acute osseous pathology. No evidence of loss of vertebral body height i s seen. There is normal alignment of the lumbar vertebral bodies. Mild scattered disc space narrowing . Multilevel marginal osteophyte formation throughout the visualized spine. There is facet joint arth ropathy throughout the spine. L5-S1 mild neural foraminal stenosis. IMPRESSION: 1. No acute fracture. 2. Mild multilevel disc degeneration.
--- NOTE | 2022-06-16 19:49 | XR ---
EXAMINATION TYPE: XR Hip RT and AP Pelvis DATE OF EXAM: 06/16/2022 7:43 PM INDICATION: Patient age:Female; 42 years old; Reason for study: injury, pain with weightbearing; COMPARISON: None. TECHNIQUE: The right hip was examined in the frontal and lateral projections and a AP pelvis. FINDINGS: No evidence for acute process, joint dislocation or significant soft tissue swelling. Pelvi c pubis are present bilaterally. Minimal degeneration with osteophytes of the acetabulum. IMPRESSION: 1. No acute process. 2. Minimal hip osteoarthrosis.
[2022-06-16] MEDS ORDERED: ACET/COD 300 MG/30 MG STARTER PACK 6 TAB BTL PO STA (20:13)
[2022-06-16] MEDS ORDERED: Acetaminophen-Codeine 300-30mg TAB PO STA (20:14)
--- NOTE | 2022-06-16 20:15 | ED ---
General Adult HPI - General Chief complaint: Extremity Injury, Lower Stated complaint: back pain - rt leg pain Time Seen by Provider: 06/16/22 19:07 Source: patient Mode of arrival: ambulatory Limitations: no limitations - History of Present Illness Initial comments: Patient is a 42-year-old female presenting with chief complaint of right hip pain. Patient states that last night she was walking in the dark when she hit her hip on a table. She states that immediately the pain was manageable, however today after walking around pain is gotten increasingly worse. Patient is still able to ambulate and bear weight but it is painful. Pain wraps around from the hip to the lower back. No numbness, tingling, weakness. No loss of bowel or bladder control. No saddle paresthesia. - Related Data Home Medications Medication Instructions Recorded Confirmed Montelukast Sodium [Singulair] 10 mg PO HS 05/14/14 06/16/22 Albuterol Inhaler [Ventolin Hfa 1 - 2 puff INHALATION RT-Q4H PRN 10/24/16 06/16/22 Inhaler] Loratadine [Claritin] 10 mg PO HS 01/07/18 06/16/22 DULoxetine HCL [Cymbalta] 30 mg PO HS 10/12/18 06/16/22 Cholecalciferol [Vitamin D3 (25 50 mcg PO HS 06/16/22 06/16/22 Mcg = 1000 Iu)] Allergies Allergy/AdvReac Type Severity Reaction Status Date / Time hydrocodone bitartrate AdvReac Vomiting Verified 06/16/22 20:16 [From Vicodin] eggplant Allergy Unknown Uncoded 09/02/21 19:06 Review of Systems ROS Statement: Those systems with pertinent positive or pertinent negative responses have been documented in the HPI. ROS Other: All systems not noted in ROS Statement are negative. Past Medical History Past Medical History: Asthma, Fibromyalgia Additional Past Medical History / Comment(s): seasonal allergies History of Any Multi-Drug Resistant Organisms: None Reported Past Surgical History: Section, Hysterectomy Past Psychological History: Depression Smoking Status: Former smoker Past Alcohol Use History: Occasional Past Drug Use History: Marijuana General Exam Limitations: no limitations General appearance: alert, in no apparent distress Head exam: Present: atraumatic, normocephalic, normal inspection Eye exam: Present: normal appearance Neck exam: Present: normal inspection Right Hip exam: Present: normal inspection, full ROM, tenderness. Absent: swelling Neurovascular tendon exam: Present: no vascular compromise Neurological exam: Present: alert, oriented X3, CN II-XII intact Psychiatric exam: Present: normal affect, normal mood Skin exam: Present: warm, dry, intact, normal color. Absent: rash Course Vital Signs 06/16/22 06/16/22 06/16/22 18:21 19:45 19:55 Temperature 98.2 F Pulse Rate 88 80 92 Respiratory 16 Rate Blood Pressure 126/87 O2 Sat by Pulse 95 Oximetry 06/16/22 20:32 Temperature Pulse Rate 90 Respiratory 20 Rate Blood Pressure 118/77 O2 Sat by Pulse 99 Oximetry Medical Decision Making - Medical Decision Making Was pt. sent in by a medical professional or institution (, [facility], ADMINISTRATIVE VOLUNTEER, urgent care, hospital, or shelter...) When possible be specific @ -No Did you speak to anyone other than the patient for history (EMS, parent, family, police, friend...)? What history was obtained from this source @ -No Did you review nursing and triage notes (agree or disagree)? Why? @ -I reviewed and agree with nursing and triage notes Were old charts reviewed (outside hosp., previous admission, EMS record, old EKG, old radiological studies, urgent care reports/EKG's, shelter records)? Report findings @ -No old charts were reviewed Differential Diagnosis (chest pain, altered mental status, abdominal pain women, abdominal pain men, vaginal bleeding, weakness, fever, dyspnea, syncope, headache, dizziness, GI bleed, back pain, seizure, CVA, palpatations, mental health)? @ -Differential includes fracture, strain, dislocation, vascular disease EKG interpreted by me (3pts min.). @ -None X-rays interpreted by me (1pt min.). @ -No acute fracture or dislocation, degenerative changes noted CT interpreted by me (1pt min.). @ -None done U/S interpreted by me (1pt. min.). @ -None done What testing was considered but not performed or refused? (CT, X-rays, U/S, labs)? Why? @ -None What meds were considered but not given or refused? Why? @ -None Did you discuss the management of the patient with other professionals (professionals i.e. , PA, ADMINISTRATIVE VOLUNTEER, lab, RT, psych nurse, social media specialist, audiovisual equipment operator, teacher, aerospace engineer officer armament, window caser)? Give summary @ -No Was smoking cessation discussed for >3mins.? @ -No Was critical care preformed (if so, how long)? @ -No Were there social determinants of health that impacted care today? How? (Homelessness, low income, unemployed, alcoholism, drug addiction, transportation, low edu. Level, literacy, decrease access to med. care, halfway, rehab)? @ -No Was there de-escalation of care discussed even if they declined (Discuss DNR or withdrawal of care, Hospice)? DNR status @ -No What co-morbidities impacted this encounter? (DM, HTN, Smoking, COPD, CAD, Cancer, CVA, ARF, Chemo, Hep., AIDS, mental health diagnosis, sleep apnea, morbid obesity)? @ -None Was patient admitted / discharged? Hospital course, mention meds given and route, prescriptions, significant lab abnormalities, going to OR and other pertinent info. @ -Patient is a 42-year-old female presenting with chief complaint of right hip pain. Patient hit her hip on a table last night. Throughout the day pain has increased. Physical examination patient is able to bear weight and ambulate. No vascular compromise. There is some pain with palpation and weightbearing. No red flag symptoms. X-rays of the hip and lumbar spine see no acute fracture or dislocation, there are chronic degenerative changes. Patient is educated on these findings on supportive management. Take Motrin and Tylenol as needed. Provided patient with a short course of Tylenol 3 for breakthrough pain. Discharged home. Follow-up with PCP. Report back to ER with any new or worsening symptoms. Discussed return parameters and answered all questions. Patient conveyed verbal understanding and agreed to the plan. I discussed this case in detail with my attending Dr. Lloyd Undiagnosed new problem with uncertain prognosis? @ -No Drug Therapy requiring intensive monitoring for toxicity (Heparin, Nitro, Insulin, Cardizem)? @ -No Were any procedures done? @ -No Diagnosis/symptom? @ -Hip pain Acute, or Chronic, or Acute on Chronic? @ -Acute Uncomplicated (without systemic symptoms) or Complicated (systemic symptoms)? @ -Uncomplicated Side effects of treatment? @ -No Exacerbation, Progression, or Severe Exacerbation? @ -No Poses a threat to life or bodily function? How? (Chest pain, [place], [place], pneumonia, PE, COPD, DKA, ARF, appy, cholecystitis, CVA, Diverticulitis, Homicidal, Suicid al, threat to staff... and all critical care pts) @ -No Disposition Clinical Impression: Hip pain Disposition: HOME SELF-CARE Condition: Good Instructions (If sedation given, give patient instructions): Hip Pain (ED) Additional Instructions: Follow-up with PCP. Report back to ER with any new or worsening symptoms. Take medication as prescribed. In addition to Tylenol 3 take Motrin as needed. Use heat and ice as needed. Is patient prescribed a controlled substance at d/c from ED?: No Referrals: Rashaun Francis MD [Primary Care Provider] - 1-2 days Time of Disposition: 20:15
[2022-06-16 20:33] VITALS: BP 118/77; PULSE 90; RESP 20
== END 2022-06-16 20:33 | disposition home or self-care (01) ==
LOC: EC 18:13
DX: M25.551 Pain in right hip (principal); J45.909 Unspecified asthma, uncomplicated; F32.A Depression, unspecified; F12.90 Cannabis use, unspecified, uncomplicated; Z87.891 Personal history of nicotine dependence; Z79.899 Other long term (current) drug therapy; Z91.018 Allergy to other foods; Z88.5 Allergy status to narcotic agent
CPT/HCPCS: 94640; 72100; 73502; 99283; 96372; J1885

== ENCOUNTER 2023-01-31 08:44 | Emergency (ER) | payer OTHER ==
--- NOTE | 2023-01-31 10:26 | ED ---
General Adult HPI - General Chief complaint: Abdominal Pain Stated complaint: Abd Pain Time Seen by Provider: 01/31/23 08:55 Source: patient Mode of arrival: ambulatory Limitations: no limitations - History of Present Illness Initial comments: Dictation was produced using [employer] dictation software. please excuse any grammatical, word or spelling errors. Chief Complaint: 42-year-old female presents with left groin pain History of Present Illness: Patient's 42-year-old female she presents emergency department with left groin pain. States that she was lifting groceries when her ride started to feel tight. States that when she lies arrest her pain goes away. Pain is most notably when sitting from laying and with standing. No nausea vomiting. States that she had a low-grade temperature yesterday. Denies any diarrhea. The ROS documented in this emergency department record has been reviewed and confirmed by me. Those systems with pertinent positive or negative responses have been documented in the HPI. All other systems are other negative and/or noncontributory. - Related Data Home Medications Medication Instructions Recorded Confirmed Montelukast Sodium [Singulair] 10 mg PO HS 05/14/14 06/16/22 Albuterol Inhaler [Ventolin Hfa 1 - 2 puff INHALATION RT-Q4H PRN 10/24/16 06/16/22 Inhaler] Loratadine [Claritin] 10 mg PO HS 01/07/18 06/16/22 DULoxetine HCL [Cymbalta] 30 mg PO HS 10/12/18 06/16/22 Cholecalciferol [Vitamin D3 (25 50 mcg PO HS 06/16/22 06/16/22 Mcg = 1000 Iu)] Allergies Allergy/AdvReac Type Severity Reaction Status Date / Time hydrocodone bitartrate AdvReac Vomiting Verified 01/31/23 08:48 [From Vicodin] eggplant Allergy Unknown Uncoded 01/31/23 08:48 Review of Systems ROS Statement: Those systems with pertinent positive or pertinent negative responses have been documented in the HPI. ROS Other: All systems not noted in ROS Statement are negative. Past Medical History Past Medical History: Asthma, Fibromyalgia Additional Past Medical History / Comment(s): seasonal allergies History of Any Multi-Drug Resistant Organisms: None Reported Past Surgical History: Section, Hysterectomy Past Psychological History: Depression Smoking Status: Former smoker Past Alcohol Use History: Occasional Past Drug Use History: Marijuana General Exam - General Exam Comments Initial Comments: PHYSICAL EXAM: General Impression: Alert and oriented x3, not in acute distress HEENT: Normocephalic atraumatic, extra-ocular movements intact, pupils equal and reactive to light bilaterally, mucous membranes moist. Cardiovascular: Heart regular rate and rhythm Chest: Able to complete full sentences, no retractions, no tachypnea Abdomen: abdomen soft, slight tenderness to the left mid groin, non-distended, no organomegaly, no palpable mass with Valsalva Musculoskeletal: Pulses present and equal in all extremities, no peripheral edema Motor: no focal deficits noted Neurological: CN II-XII grossly intact, no focal motor or sensory deficits noted Skin: Intact with no visualized rashes Psych: Normal affect and mood Limitations: no limitations Course Vital Signs 01/31/23 08:45 Temperature 98.2 F Pulse Rate 71 Respiratory 18 Rate Blood Pressure 99/70 O2 Sat by Pulse 96 Oximetry Medical Decision Making - Medical Decision Making Was pt. sent in by a medical professional or institution (, PA, CREATIVE SERVICES MANAGER, urgent care, hospital, or [place] [facility] facility...) When possible be specific @ -No Did you speak to anyone other than the patient for history (EMS, parent, family, police, friend...)? What history was obtained from this source @ -No Did you review nursing and triage notes (agree or disagree)? Why? @ -I reviewed and agree with nursing and triage notes Were old charts reviewed (outside hosp., previous admission, EMS record, old EKG, old radiological studies, urgent care reports/EKG's, [place] [facility] facility records)? Report findings @ -No old charts were reviewed Differential Diagnosis (chest pain, altered mental status, abdominal pain women, abdominal pain men, vaginal bleeding, musculoskeletal, weakness, fever, dyspnea, syncope, headache, dizziness, GI bleed, back pain, seizure, CVA, palpatations, mental health)? @ -Differential Abdominal Pain Women: Appendicitis, Cholecystitis, diverticulosis, ischemic bowel, pancreatitis, hepatitis, UTI, gastroenteritis, AAA, incarcerated hernia, bowel obstruction, constipation, inflammatory bowel, hepatitis, peptic ulcer disease, splenic infarction, perforated viscus, vulvitis, ovarian torsion, PID, kidney stone, placenta abruption, this is not meant to be an all-inclusive list EKG interpreted by me (3pts min.). @ -None done X-rays interpreted by me (1pt min.). @ -None done CT interpreted by me (1pt min.). @ -None done U/S interpreted by me (1pt. min.). @ -None done What testing was considered but not performed or refused? (CT, X-rays, U/S, labs)? Why? @ -None What meds were considered but not given or refused? Why? @ -None Did you discuss the management of the patient with other professionals (professionals i.e. , PA, CREATIVE SERVICES MANAGER, lab, RT, psych nurse, nursing home social worker, dragger, teacher, environmental compliance officer, social work case manager)? Give summary @ -No Was smoking cessation discussed for >3mins.? @ -No Was critical care preformed (if so, how long)? @ -No Were there social determinants of health that impacted care today? How? (Homelessness, low income, unemployed, alcoholism, drug addiction, transportation, low edu. Level, literacy, decrease access to med. care, [facility], rehab)? @ -No Was there de-escalation of care discussed even if they declined (Discuss DNR or withdrawal of care, Hospice)? DNR status @ -No What co-morbidities impacted this encounter? (DM, HTN, Smoking, COPD, CAD, Cancer, CVA, ARF, Chemo, Hep., AIDS, mental health diagnosis, sleep apnea, morbid obesity)? @ -None Was patient admitted / discharged? Hospital course, mention meds given and route, prescriptions, significant lab abnormalities, going to OR and other pertinent info. @ -42-year-old female presents with groin strain. Vital signs stable. She did complain of having a fever yesterday. Laboratory evaluation obtained. CBC and metabolic panel is unremarkable. Patient observed in emergency department. She is well-appearing has no other complaints. Undiagnosed new problem with uncertain prognosis? @ -No Drug Therapy requiring intensive monitoring for toxicity (Heparin, Nitro, Insulin, Cardizem)? @ -No Were any procedures done? @ -No Diagnosis/symptom? Acute, or Chronic, or Acute on Chronic? Uncomplicated (without systemic symptoms) or Complicated (systemic symptoms)? @ -1. Groin strain Side effects of treatment? @ -No Exacerbation, Progression, or Severe Exacerbation? @ -No Poses a threat to life or bodily function? How? (Chest pain, [place], [place], pneumonia, PE, COPD, DKA, ARF, appy, cholecystitis, CVA, Diverticulitis, Homicidal, Suicidal, threat to staff... and all critical care pts) @ -No - Lab Data Result diagrams: 01/31/23 10:29 01/31/23 10:29 Lab Results 01/31/23 01/31/23 Range/Units 10:29 10:29 WBC 7.7 (3.8-10.6) k/uL RBC 4.40 (3.80-5.40) m/uL Hgb 13.3 (11.4-16.0) gm/dL Hct 39.0 (34.0-46.0) % MCV 88.8 (80.0-100.0) fL MCH 30.2 (25.0-35.0) pg MCHC 34.1 (31.0-37.0) g/dL RDW 13.2 (11.5-15.5) % Plt Count 261 (150-450) k/uL MPV 7.3 Neutrophils % 56 % Lymphocytes % 34 % Monocytes % 4 % Eosinophils % 5 % Basophils % 0 % Neutrophils # 4.3 (1.3-7.7) k/uL Lymphocytes # 2.6 (1.0-4.8) k/uL Monocytes # 0.3 (0-1.0) k/uL Eosinophils # 0.3 (0-0.7) k/uL Basophils # 0.0 (0-0.2) k/uL Sodium 137 (137-145) mmol/L Potassium 4.6 (3.5-5.1) mmol/L Chloride 106 (98-107) mmol/L Carbon Dioxide 24 (22-30) mmol/L Anion Gap 7 mmol/L BUN 13 (7-17) mg/dL Creatinine 0.67 (0.52-1.04) mg/dL Est GFR (CKD-EPI)AfAm >90 (>60 ml/min/1.73 sqM) Est GFR (CKD-EPI)NonAf >90 (>60 ml/min/1.73 sqM) Glucose 113 H (74-99) mg/dL Calcium 8.7 (8.4-10.2) mg/dL Total Bilirubin 0.5 (0.2-1.3) mg/dL AST 23 (14-36) U/L ALT 22 (4-34) U/L Alkaline Phosphatase 56 (38-126) U/L Total Protein 6.3 (6.3-8.2) g/dL Albumin 3.6 (3.5-5.0) g/dL Disposition Clinical Impression: Groin strain Disposition: HOME SELF-CARE Condition: Good Instructions (If sedation given, give patient instructions): Groin Pain (ED) Is patient prescribed a controlled substance at d/c from ED?: No Referrals: Rashaun Francis [Primary Care Provider] - 1-2 days Time of Disposition: 12:06
[2023-01-31 10:51] LABS: Basophils % (A) 0 %; Eosinophils # (A) 0.3 k/uL (0-0.7); Eosinophils % (A) 5 %; HGB 13.3 gm/dL (11.4-16.0); Lymphocytes # (A) 2.6 k/uL (1.0-4.8); Lymphocytes % (A) 34 %; MCH 30.2 pg (25.0-35.0); MCHC 34.1 g/dL (31.0-37.0); MCV 88.8 fL (80.0-100.0); Mean Platelet Volume 7.3; Monocytes # (A) 0.3 k/uL (0-1.0); Monocytes % (A) 4 %; Neutrophils # (A) 4.3 k/uL (1.3-7.7); Neutrophils % (A) 56 %; Platelet Count 261 k/uL (150-450); RDW 13.2 % (11.5-15.5); WBC 7.7 k/uL (3.8-10.6)
[2023-01-31 11:02] LABS: Chloride 106 mmol/L (98-107)
[2023-01-31 11:04] LABS: ALT 22 U/L (4-34); AST 23 U/L (14-36); African American GFR (CKD) >90 (>60 ml/min/1.73 sqM); Albumin 3.6 g/dL (3.5-5.0); Alkaline Phosphatase 56 U/L (38-126); Anion Gap 7 mmol/L; Blood Urea Nitrogen 13 mg/dL (7-17); Calcium 8.7 mg/dL (8.4-10.2); Carbon Dioxide 24 mmol/L (22-30); Glucose 113 mg/dL (74-99); Non-African American GFR(CKD) >90 (>60 ml/min/1.73 sqM); Potassium 4.6 mmol/L (3.5-5.1); Sodium 137 mmol/L (137-145); Total Bilirubin 0.5 mg/dL (0.2-1.3); Total Protein 6.3 g/dL (6.3-8.2)
[2023-01-31 12:30] VITALS: BP 108/68; PULSE 68; RESP 20; TEMP 98
== END 2023-01-31 12:27 | disposition home or self-care (01) ==
LOC: EC 08:44
DX: S39.011A Strain of muscle, fascia and tendon of abdomen, initial encounter (principal); J45.909 Unspecified asthma, uncomplicated; F32.A Depression, unspecified; F12.90 Cannabis use, unspecified, uncomplicated; Z79.899 Other long term (current) drug therapy; Z87.891 Personal history of nicotine dependence; Z88.5 Allergy status to narcotic agent; Z91.012 Allergy to eggs; X58.XXXA Exposure to other specified factors, initial encounter
CPT/HCPCS: 36415; 80053; 85025; 99284

== ENCOUNTER 2023-05-12 12:02 | Emergency (ER) | payer OTHER ==
[2023-05-12 12:16] VITALS: PULSE 78; RESP 18; TEMP 97.9
--- NOTE | 2023-05-12 13:01 | XR ---
EXAMINATION TYPE: XR knee complete RT DATE OF EXAM: 05/12/2023 COMPARISON: NONE HISTORY: Pain TECHNIQUE: Three views are submitted. FINDINGS: Joint spaces are preserved. Osseous structures are intact. No acute fracture seen. Small amount of fluid in the suprapatellar bursa. There is marginal spurring and narrowing patellofemoral joint and medial compartment of the knee joint. IMPRESSION: 1. Mild spurring and osteoarthritic changes with fluid in the suprapatellar bursa. This can occasiona lly be associated with internal derangement knee correlate clinically. 2. No acute fracture or dislocation.
--- NOTE | 2023-05-12 13:04 | XR ---
EXAMINATION TYPE: XR Hip RT and AP Pelvis DATE OF EXAM: 05/12/2023 COMPARISON: 06/16/2028 HISTORY: Pain TECHNIQUE: A single AP view of the pelvis is obtained. Two views of the right hip are obtained. FINDINGS: There is no acute fracture/dislocation evident in the pelvis. There is mild narrowing of t he hip joint bilaterally. Mild hypertrophic arthropathy right SI joint.. The overlying soft tissue a ppears unremarkable. Vascular phleboliths in the pelvis. Two views of right hip show no acute fracture or dislocation. No focal lytic or sclerotic lesion see n in the proximal right femur. The overlying soft tissue is unremarkable. IMPRESSION: There is no acute fracture or dislocation in the pelvis or right hip.
--- NOTE | 2023-05-12 13:16 | ED ---
Fall HPI - General Chief Complaint: Fall Stated Complaint: Fall Time Seen by Provider: 05/12/23 12:16 Source: patient, RN notes reviewed Mode of arrival: ambulatory Limitations: no limitations - History of Present Illness Initial Comments: 43-year-old female presents emergency department lateral fall. Patient states she fell on Wednesday states that she fell right onto her right knee and right hip. She states she has swelling of her knee making it difficult to extend. Patient states that she is able to bear weight she also complains of right hip pain no head injury no loss conscious. - Related Data Home Medications Medication Instructions Recorded Confirmed Montelukast Sodium [Singulair] 10 mg PO HS 05/14/14 06/16/22 Albuterol Inhaler [Ventolin Hfa 1 - 2 puff INHALATION RT-Q4H PRN 10/24/16 06/16/22 Inhaler] Loratadine [Claritin] 10 mg PO HS 01/07/18 06/16/22 DULoxetine HCL [Cymbalta] 30 mg PO HS 10/12/18 06/16/22 Cholecalciferol [Vitamin D3 (25 50 mcg PO HS 06/16/22 06/16/22 Mcg = 1000 Iu)] Allergies Allergy/AdvReac Type Severity Reaction Status Date / Time hydrocodone bitartrate AdvReac Vomiting Verified 05/12/23 12:13 [From Vicodin] eggplant Allergy Unknown Uncoded 05/12/23 12:13 Review of Systems ROS Statement: Those systems with pertinent positive or pertinent negative responses have been documented in the HPI. ROS Other: All systems not noted in ROS Statement are negative. Past Medical History Past Medical History: Asthma, Fibromyalgia Additional Past Medical History / Comment(s): seasonal allergies History of Any Multi-Drug Resistant Organisms: None Reported Past Surgical History: Section, Hysterectomy Past Psychological History: Depression Smoking Status: Former smoker Past Alcohol Use History: Occasional Past Drug Use History: Marijuana General Exam Limitations: no limitations General appearance: alert, in no apparent distress Head exam: Present: atraumatic, normocephalic, normal inspection Eye exam: Present: normal appearance, PERRL, EOMI. Absent: scleral icterus, conjunctival injection, periorbital swelling Respiratory exam: Present: normal lung sounds bilaterally. Absent: respiratory distress, wheezes, rales, rhonchi, stridor Cardiovascular Exam: Present: regular rate, normal rhythm, normal heart sounds. Absent: systolic murmur, diastolic murmur, rubs, gallop, clicks Extremities exam: Present: other (Right hip mild tenderness, full range of motion neurovascular intact there is mild swelling noted of the right knee without tenderness above or below the right knee) Back exam: Present: full ROM. Absent: tenderness Course Vital Signs 05/12/23 12:10 Temperature 97.9 F Pulse Rate 78 Respiratory 18 Rate Blood Pressure 117/70 O2 Sat by Pulse 96 Oximetry Medical Decision Making - Medical Decision Making Was pt. sent in by a medical professional or institution (CHRISTA Hardy, PRESS TENDER [employer], urgent care, hospital, or halfway...) When possible be specific @ -No Did you speak to anyone other than the patient for history (EMS, parent, family, police, friend...)? What history was obtained from this source @ -No Did you review nursing and triage notes (agree or disagree)? Why? @ -I reviewed and agree with nursing and triage notes Were old charts reviewed (outside hosp., previous admission, EMS record, old EKG, old radiological studies, urgent care reports/EKG's, halfway records)? Report findings @ -No old charts were reviewed Differential Diagnosis (chest pain, altered mental status, abdominal pain women, abdominal pain men, vaginal bleeding, weakness, fever, dyspnea, syncope, headache, dizziness, GI bleed, back pain, seizure, CVA, palpatations, mental health, musculoskeletal)? @ -Right knee contusion, right knee effusion leg fracture EKG interpreted by me (3pts min.). @ -None X-rays interpreted by me (1pt min.). @ -X-ray right hip no acute fracture or dislocation, right knee there is mild effusion noted no acute fracture CT interpreted by me (1pt min.). @ -None done U/S interpreted by me (1pt. min.). @ -None done What testing was considered but not performed or refused? (CT, X-rays, U/S, labs)? Why? @ -None What meds were considered but not given or refused? Why? @ -None Did you discuss the management of the patient with other professionals (professionals i.e. CHRISTA Hardy, PRESS TENDER [employer], lab, RT, psych nurse, social security benefits interviewer, candy bar attendant, teacher, commanding officer garage, residential case manager)? Give summary @ -No Was smoking cessation discussed for >3mins.? @ -No Was critical care preformed (if so, how long)? @ -No Were there social determinants of health that impacted care today? How? (Homelessness, low income, unemployed, alcoholism, drug addiction, transportation, low edu. Level, literacy, decrease access to med. care, [facility], rehab)? @ -No Was there de-escalation of care discussed even if they declined (Discuss DNR or withdrawal of care, Hospice)? DNR status @ -No What co-morbidities impacted this encounter? (DM, HTN, Smoking, COPD, CAD, Cancer, CVA, ARF, Chemo, Hep., AIDS, mental health diagnosis, sleep apnea, morbid obesity)? @ -None Was patient admitted / discharged? Hospital course, mention meds given and route, prescriptions, significant lab abnormalities, going to OR and other pertinent info. @ -[Discharge patient has a right knee effusion after a fall. Patient follow- up with orthopedics patient advised to continue to rest ice and elevate and return parameters were discussed. Undiagnosed new problem with uncertain prognosis? @ -No Drug Therapy requiring intensive monitoring for toxicity (Heparin, Nitro, Insulin, Cardizem)? @ -No Were any procedures done? @ -No Diagnosis/symptom? @ -Right knee effusion, fall, knee pain Acute, or Chronic, or Acute on Chronic? @ -Acute Uncomplicated (without systemic symptoms) or Complicated (systemic symptoms)? @ -Uncomplicated Side effects of treatment? @ -No Exacerbation, Progression, or Severe Exacerbation? @ -No Poses a threat to life or bodily function? How? (Chest pain, [place], [place], pneumonia, PE, COPD, DKA, ARF, appy, cholecystitis, CVA, Diverticulitis, Homicidal, Suicidal, threat to staff... and all critical care pts) @ -No Disposition Clinical Impression: Fall, Effusion, right knee Disposition: HOME SELF-CARE Condition: Stable Instructions (If sedation given, give patient instructions): Swollen Knee Joint (ED) Additional Instructions: Please return to the Emergency Department if symptoms worsen or any other concerns. Is patient prescribed a controlled substance at d/c from ED?: No Referrals: Rashaun Francis [Primary Care Provider] - 1-2 days Malik Chin DO [Doctor of Osteopathic Medicine] - 1-2 days Time of Disposition: 13:16
[2023-05-12 13:29] VITALS: BP 124/74
== END 2023-05-12 13:28 | disposition home or self-care (01) ==
LOC: EC 12:02
DX: M25.461 Effusion, right knee (principal); F12.90 Cannabis use, unspecified, uncomplicated; J45.909 Unspecified asthma, uncomplicated; Z86.59 Personal history of other mental and behavioral disorders; Z87.891 Personal history of nicotine dependence; Z79.899 Other long term (current) drug therapy; Z88.6 Allergy status to analgesic agent; Z91.012 Allergy to eggs; W18.30XA Fall on same level, unspecified, initial encounter
CPT/HCPCS: 73502; 99284

== ENCOUNTER 2024-04-07 12:04 | Observation (INO) | payer OTHER ==
[2024-04-07] MEDS: ASPIRIN 81 MG PO STA (12:32)
[2024-04-07] MEDS: NITROGLYCERIN SL TABS 0.4 MG TAB SUBLINGUAL STA (12:36)
--- NOTE | 2024-04-07 12:40 | ED ---
Chest Pain HPI - General Chief Complaint: Chest Pain Stated Complaint: Chest pain Time Seen by Provider: 04/07/24 12:20 Source: patient, RN notes reviewed Mode of arrival: ambulatory Limitations: no limitations - History of Present Illness Initial Comments: This is a 44-year-old female who presents to the emergency department for chest pain. States that this started a couple of hours prior to arrival while she was bagging groceries. She felt clammy and dizzy when this first occurred. She also had some shortness of breath initially, however this has since resolved. The pain is currently a 5 out of 10 and has improved from what it was, but is still bothersome. Describes this as a pressure sensation. Denies any personal history of cardiac issues. States that her father has a history of cardiac problems and was diagnosed in his 40s, but is unsure what exactly those problems are. Denies any history of chest pain in the past. MD Complaint: chest pain - Related Data Home Medications Medication Instructions Recorded Confirmed Montelukast Sodium [Singulair] 10 mg PO HS 05/14/14 04/07/24 Loratadine [Claritin] 10 mg PO HS 01/07/18 04/07/24 DULoxetine HCL [Cymbalta] 30 mg PO HS 10/12/18 04/07/24 Allergies Allergy/AdvReac Type Severity Reaction Status Date / Time prednisone Allergy increases Verified 04/07/24 14:48 heart rate, chest flutters thyme Allergy Anaphylaxis Verified 04/07/24 14:48 hydrocodone bitartrate AdvReac hyperactivi Verified 04/07/24 14:48 [From Vicodin] ty eggplant Allergy Anaphylaxis Uncoded 04/07/24 14:48 Review of Systems ROS Statement: Those systems with pertinent positive or pertinent negative responses have been documented in the HPI. ROS Other: All systems not noted in ROS Statement are negative. Past Medical History Past Medical History: Asthma, Fibromyalgia Additional Past Medical History / Comment(s): seasonal allergies History of Any Multi-Drug Resistant Organisms: None Reported Past Surgical History: Section, Hysterectomy Past Psychological History: Depression Smoking Status: Former smoker Past Alcohol Use History: Occasional Past Drug Use History: Marijuana General Exam Limitations: no limitations General appearance: alert, in no apparent distress Head exam: Present: atraumatic, normocephalic, normal inspection Respiratory exam: Present: normal lung sounds bilaterally. Absent: respiratory distress, wheezes, rales, rhonchi, stridor Cardiovascular Exam: Present: regular rate, normal rhythm, normal heart sounds. Absent: systolic murmur, diastolic murmur, rubs, gallop, clicks Neurological exam: Present: alert, oriented X3, CN II-XII intact Psychiatric exam: Present: normal affect, normal mood Skin exam: Present: warm, dry, intact, normal color. Absent: rash Course Vital Signs 04/07/24 04/07/24 12:16 12:35 Temperature 97.5 F L Pulse Rate 77 70 Respiratory 18 18 Rate Blood Pressure 115/64 122/78 O2 Sat by Pulse 96 97 Oximetry Chest Pain MDM - MDM This is a 44 year old female who presents to the emergency department for chest pain. Was pt. sent in by a medical professional or institution? @ -No Did you speak to anyone other than the patient for history? @ -No Did you review nursing and triage notes? @ -Yes, and I agree, it is accurate with regards to the patient's symptoms. Were old charts reviewed? @ -No Differential Diagnosis? @ -Differential Chest Pain: Stable Angina, Unstable Angina, STEMI, NSTEMI Aortic Dissection, Pneumothorax, Musculoskeletal, Esophageal Spasm GERD, Cholecystitis, Pancreatitis, Zoster, this is not meant to be an all-inclusive list. EKG interpreted by me (3pts min.)? @ -EKG interpreted by me demonstrating the following: Sinus rhythm. Ventricular rate 62 bpm, AZ interval 152 ms, QRS duration 80 ms, QTc 413 ms. X-rays interpreted by me (1pt min.)? @ -Chest x-ray obtained, my interpretation identifies no localized consolidations or infiltrates. CT interpreted by me (1pt min.)? @ -Not obtained U/S interpreted by me (1pt. min.)? @ -Not obtained What testing was considered but not performed? (CT, X-rays, U/S, labs)? Why? @ -None What meds were considered but not given? Why? @ -None Did you discuss the management of the patient with other professionals? @ -Yes, Dr. Chaudhry, who accepts the patient for admission. Did you reconcile home meds? @ -No Was smoking cessation discussed for >3mins.? @ -I discussed smoking cessation for greater than 3 minutes. The risk of smoking were discussed with the patient including but not limited to risks of cancer, stroke, coronary artery disease and COPD. Also discussed with patient were multiple methods of quitting smoking. Lastly we discussed the financial cost of smoking. Was critical care preformed (if so, how long)? @ -No Were there social determinants of health that impacted care today? How? (Homelessness, low income, unemployed, alcoholism, drug addiction, transportation, low edu. Level, literacy, decrease access to med. care, [facility], rehab)? @ -No Was there de-escalation of care discussed even if they declined? (Discuss DNR or withdrawal of care, Hospice)? @ -No What co-morbidities impacted this encounter? (DM, HTN, Smoking, COPD, CAD, Cancer, CVA, Hep., AIDS, mental health diagnosis, sleep apnea, morbid obesity)? @ -Smoking Was patient admitted / discharged? @ -Admitted. Patient was given aspirin and nitroglycerin on arrival. Chest pain essentially resolved after nitroglycerin administration. Lab work unremarkable and first troponin negative. Given her strong family history, risk factors, and resolution of pain with nitroglycerin, patient admitted to medicine for chest pain observation. Nitropaste was applied. Serial troponins ordered. Consult placed for cardiology. Patient kept n.p.o. after midnight in the event cardiology proceeds with a stress test. Case discussed with ED attending, Dr. Bains. Undiagnosed new problem with uncertain prognosis? @ -None Drug Therapy requiring intensive monitoring for toxicity (Heparin, Nitro, Insulin, Cardizem)? @ -None Were any procedures done? @ -None Diagnosis/symptom? @ -Chest pain Acute, or Chronic, or Acute on Chronic? @ -Acute Uncomplicated (without systemic symptoms) or Complicated (systemic symptoms)? @ -Uncomplicated Side effects of treatment? @ -None Exacerbation, Progression, or Severe Exacerbation] @ -Not applicable Poses a threat to life or bodily function? @ -Yes, if due to ACS it is life threatening Disposition Clinical Impression: Chest pain, Nicotine dependence Disposition: ADMITTED IP TO THIS HOSP
[2024-04-07 12:51] LABS: Basophils # (A) 0.1 k/uL (0-0.2); Basophils % (A) 1 %; Eosinophils # (A) 0.4 k/uL (0-0.7); Eosinophils % (A) 5 %; HCT 41.5 % (34.0-46.0); HGB 13.9 gm/dL (11.4-16.0); Lymphocytes # (A) 2.3 k/uL (1.0-4.8); Lymphocytes % (A) 29 %; MCH 30.2 pg (25.0-35.0); MCHC 33.5 g/dL (31.0-37.0); MCV 90.3 fL (80.0-100.0); Mean Platelet Volume 6.5; Monocytes # (A) 0.3 k/uL (0-1.0); Monocytes % (A) 4 %; Neutrophils # (A) 4.7 k/uL (1.3-7.7); Neutrophils % (A) 60 %; Platelet Count 309 k/uL (150-450); RDW 13.1 % (11.5-15.5); WBC 7.7 k/uL (3.8-10.6)
[2024-04-07 13:04] LABS: INR 0.9 (<1.2); Partial Thromboplastin Time 25.6 sec (22.0-30.0); Prothrombin Time 9.8 sec (10.0-12.5)
[2024-04-07] MEDS: SODIUM CHLORIDE 0.9% 1,000 ML IV STA (13:06)
[2024-04-07 13:07] LABS: ALT 22 U/L (4-34); AST 25 U/L (14-36); African American GFR (CKD) >90 (>60 ml/min/1.73 sqM); Albumin 4.2 g/dL (3.5-5.0); Alkaline Phosphatase 65 U/L (38-126); Anion Gap 4 mmol/L; Blood Urea Nitrogen 14 mg/dL (7-17); Calcium 9.3 mg/dL (8.4-10.2); Carbon Dioxide 27 mmol/L (22-30); Chloride 108 mmol/L (98-107); Glucose 99 mg/dL (74-99); Magnesium 1.9 mg/dL (1.6-2.3); Non-African American GFR(CKD) >90 (>60 ml/min/1.73 sqM); Potassium 4.4 mmol/L (3.5-5.1); Sodium 139 mmol/L (137-145); Total Bilirubin 0.5 mg/dL (0.2-1.3); Total Protein 7.1 g/dL (6.3-8.2)
--- NOTE | 2024-04-07 13:43 | XR ---
EXAMINATION TYPE: XR chest 2V DATE OF EXAM: 04/07/2024 12:54 PM COMPARISON: Chest radiographs from 01/07/2018 CLINICAL INDICATION: Female, 44 years old with history of Chest Pain; [facility] TECHNIQUE: XR chest 2V Frontal and lateral views of the chest. FINDINGS: Lungs/Pleura: There is no evidence of pleural effusion, focal consolidation, or pneumothorax. Pulmonary vascularity: Unremarkable. Heart/mediastinum: Cardiomediastinal silhouette is unremarkable. Musculoskeletal: No acute osseous pathology. IMPRESSION: No acute cardiopulmonary disease/process. [facility] Bubba Ramírez, , 04/07/2024 1:40 PM
[2024-04-07] MEDS ORDERED: HYDROcodone/APAP 5-325MG 1 EACH TAB PO PRN (14:29)
[2024-04-07] MEDS ORDERED: ONDANSETRON 4 MG/2 ML VIAL IVP PRN (14:29)
[2024-04-07] MEDS ORDERED: NALOXONE 0.4 MG/ML 1 ML VIAL IV PRN (14:29)
[2024-04-07] MEDS ORDERED: MORPHINE SULFATE 4 MG/ML SYRINGE IV PRN (14:29)
[2024-04-07] MEDS: NITROGLYCERIN OINT 1 INCH/GM PACKET TOPICAL STA (15:33)
[2024-04-07] MEDS: INFLUENZA VACC (6 MOS-64 YRS) 45 MCG/0.5 ML SYRINGE IM ONE (19:09)
[2024-04-07] MEDS: LORATADINE 10 MG TAB PO SCH (20:01)
[2024-04-07] MEDS: DULoxetine HCL 30 MG CAPSULE.DR PO SCH (20:01)
[2024-04-07] MEDS: MONTELUKAST 10 MG TAB PO SCH (20:01)
[2024-04-08] MEDS: PANTOPRAZOLE 40 MG/10 ML VIAL IV SCH (08:10)
--- NOTE | 2024-04-08 09:11 | P.CRDCN ---
History of Present Illness Consult date: 04/08/24 Chief complaint: chest pain History of present illness: The patient is a very pleasant 44-year-old female patient with a past medical history significant for overweight but no other cardiovascular issues including hypertension or dyslipidemia or CAD presented to the hospital complaining of chest discomfort. She works at [employer] and she was moving grocery around when she started experiencing discomfort in the epigastric area with no radiation to the arms or neck or shoulders or back got worse and lasted for about 15 to 20 minutes and resolved after that. No associated symptoms of shortness of breath or dizziness or lightness or any feeling of heart racing or fluttering or presyncope or syncope or edema in the lower extremities. She underwent further evaluation including chest x-ray came in to be unremarkable and EKG showing sinus mechanism with no significant ST or T wave abnormalities and cardiac enzymes came to be unremarkable blood work overall came in to be unremarkable as well. No history of CAD or heart failure or cardiac arrhythmia. She does have significant family stay of cardiovascular disease. She used to smoke but she stopped smoking. The examination is remarkable for regular rhythm with a soft systolic murmur and clear breathing sounds bilaterally and no carotid bruit and no edema was noted Assessment Atypical chest discomfort Significant family history of cardiovascular disease Plan Acute coronary event was ruled out Rule out severe CAD by obtaining a stress test and the patient would like to wait till Wednesday to have it done Obtain an echocardiogram with Doppler Follow-up with the patient Past Medical History Past Medical History: Asthma, Fibromyalgia Additional Past Medical History / Comment(s): seasonal allergies History of Any Multi-Drug Resistant Organisms: None Reported Past Surgical History: Section, Hysterectomy Past Psychological History: Depression Smoking Status: Former smoker Past Alcohol Use History: Occasional Past Drug Use History: Marijuana Medications and Allergies Home Medications Medication Instructions Recorded Confirmed Type Montelukast Sodium [Singulair] 10 mg PO HS 05/14/14 04/07/24 History Loratadine [Claritin] 10 mg PO HS 01/07/18 04/07/24 History DULoxetine HCL [Cymbalta] 30 mg PO HS 10/12/18 04/07/24 History Allergies Allergy/AdvReac Type Severity Reaction Status Date / Time prednisone Allergy increases Verified 04/07/24 14:48 heart rate, chest flutters thyme Allergy Anaphylaxis Verified 04/07/24 14:48 hydrocodone bitartrate AdvReac hyperactivi Verified 04/07/24 14:48 [From Vicodin] ty eggplant Allergy Anaphylaxis Uncoded 04/07/24 14:48 Physical Exam Vitals: Vital Signs Temp Pulse Pulse Resp BP BP Pulse Ox 04/08/24 07:00 98.0 F 80 18 157/78 96 04/08/24 02:00 97.8 F 70 17 126/83 98 04/07/24 20:27 98.1 F 68 17 105/59 98 04/07/24 20:01 68 04/07/24 15:52 98.2 F 68 18 134/68 98 04/07/24 12:35 70 18 122/78 97 04/07/24 12:16 97.5 F L 77 18 115/64 96 Intake and Output 04/07/24 04/08/24 04/08/24 22:59 06:59 14:59 Intake Total 118 Balance 118 Intake: Oral 118 Other: Voiding Method Toilet # Voids 2 3 Results 04/07/24 12:27 04/07/24 12:27 Cardiac Enzymes 04/07/24 04/07/24 04/07/24 Range/Units 12:27 12:27 15:14 AST 25 (14-36) U/L Troponin I <0.012 <0.012 (0.000-0.034) ng/mL 04/07/24 Range/Units 18:10 AST (14-36) U/L Troponin I <0.012 (0.000-0.034) ng/mL Coagulation 04/07/24 Range/Units 12:27 PT 9.8 L (10.0-12.5) sec APTT 25.6 (22.0-30.0) sec CBC 04/07/24 Range/Units 12:27 WBC 7.7 (3.8-10.6) k/uL RBC 4.60 (3.80-5.40) m/uL Hgb 13.9 (11.4-16.0) gm/dL Hct 41.5 (34.0-46.0) % Plt Count 309 (150-450) k/uL Comprehensive Metabolic Panel 04/07/24 Range/Units 12:27 Sodium 139 (137-145) mmol/L Potassium 4.4 (3.5-5.1) mmol/L Chloride 108 H (98-107) mmol/L Carbon Dioxide 27 (22-30) mmol/L BUN 14 (7-17) mg/dL Creatinine 0.67 (0.52-1.04) mg/dL Glucose 99 (74-99) mg/dL Calcium 9.3 (8.4-10.2) mg/dL AST 25 (14-36) U/L ALT 22 (4-34) U/L Alkaline Phosphatase 65 (38-126) U/L Total Protein 7.1 (6.3-8.2) g/dL Albumin 4.2 (3.5-5.0) g/dL Current Medications Generic Name Dose Route Start Last Admin Trade Name Freq PRN Reason Stop Dose Admin Acetaminophen 650 mg 04/07/24 14:29 Acetaminophen Tab 325 Mg Tab PO Q6HR PRN Mild Pain or Fever > 100.5 Hydrocodone Bitart/Acetaminophen 1 each 04/07/24 14:29 Hydrocodone/Apap 5-325mg 1 Each Tab PO Q4HR PRN Moderate Pain (Scale 4 to 6) Duloxetine HCl 30 mg 04/07/24 21:00 04/07/24 20:01 Duloxetine Hcl 30 Mg Capsule.Dr PO 30 mg HS GRIFFIN Administration Loratadine 10 mg 04/07/24 21:00 04/07/24 20:01 Loratadine 10 Mg Tab PO 10 mg HS GRIFFIN Administration Montelukast Sodium 10 mg 04/07/24 21:00 04/07/24 20:01 Montelukast 10 Mg Tab PO 10 mg HS GRIFFIN Administration Morphine Sulfate 4 mg 04/07/24 14:29 Morphine Sulfate 4 Mg/Ml Syringe IV Q4HR PRN Severe Pain (Scale 7 to 10) Naloxone HCl 0.2 mg 04/07/24 14:29 Naloxone 0.4 Mg/Ml 1 Ml Vial IV Q2M PRN Opioid Reversal Ondansetron HCl 4 mg 04/07/24 14:29 Ondansetron 4 Mg/2 Ml Vial IVP Q8HR PRN Nausea And Vomiting Pantoprazole Sodium 40 mg 04/08/24 09:00 04/08/24 08:10 Pantoprazole 40 Mg/10 Ml Vial IV 40 mg DAILY GRIFFIN Administration Intake and Output 04/07/24 04/08/24 04/08/24 22:59 06:59 14:59 Intake Total 118 Balance 118 Intake: Oral 118 Other: Voiding Method Toilet # Voids 2 3 04/07/24 12:27 04/07/24 12:27
--- NOTE | 2024-04-08 23:43 | P.HPIM ---
History of Present Illness H&P Date: 04/08/24 Chief Complaint: Chest pain Patient is a 44-year-old female with a known history of asthma, fibromyalgia, seasonal allergies, depression and prior history of smoking and occasional marijuana use. 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 Pressure-like sensation. 8 out of 10 in severity. Patient felt pain over the left side of her head. She felt clammy and dizzy.. No nausea vomiting. Mild associated shortness of breath. Patient drove to ER for evaluation. Patient quit smoking several years ago. She has been stressful recently., Her recently had hip replacement and is in and out of rehab and also she is not in terms with her son. Patient's father had heart problems in his 40s. Chest x-ray showed no acute cardiopulmonary process. EKG showed sinus rhythm. Lab data showed WBC 7.7 hemoglobin 13.9 and platelets 309, sodium 139 potassium 4.4 chloride 108 bicarb is 27 BUN 14 and creatinine 0.67 and blood sugar 99. Troponin x 3 negative. Review of Systems Constitutional: Patient denies any fever or chills . No generalized weakness or weight loss. Abdomen: Patient denied nausea vomiting and diarrhea and abdominal pain. Cardiovascular: Patient denies any chest pain or short of breath no palpitations. Respiratory: patient denied any cough or sputum production. No shortness of breath Neurologic: Patient denied any numbness or tingling. no headache. Musculoskeletal: Patient denies any complaints of joint swelling or deformity. Skin: Negative Psychiatric: Negative Endocrine: No heat or cold intolerance. No recent weight gain. Genitourinary: No dysuria or hematuria. All other 14 point ROS negative except the above Past Medical History Past Medical History: Asthma, Fibromyalgia Additional Past Medical History / Comment(s): seasonal allergies History of Any Multi-Drug Resistant Organisms: None Reported Past Surgical History: Section, Hysterectomy Past Psychological History: Depression Smoking Status: Former smoker Past Alcohol Use History: Occasional Past Drug Use History: Marijuana Medications and Allergies Home Medications Medication Instructions Recorded Confirmed Type Montelukast Sodium [Singulair] 10 mg PO HS 05/14/14 04/07/24 History Loratadine [Claritin] 10 mg PO HS 01/07/18 04/07/24 History DULoxetine HCL [Cymbalta] 30 mg PO HS 10/12/18 04/07/24 History Allergies Allergy/AdvReac Type Severity Reaction Status Date / Time prednisone Allergy increases Verified 04/07/24 14:48 heart rate, chest flutters thyme Allergy Anaphylaxis Verified 04/07/24 14:48 hydrocodone bitartrate AdvReac hyperactivi Verified 04/07/24 14:48 [From Vicodin] ty eggplant Allergy Anaphylaxis Uncoded 04/07/24 14:48 Physical Exam Vitals: Vital Signs Temp Pulse Pulse Resp BP BP Pulse Ox 04/08/24 07:00 98.0 F 80 18 157/78 96 04/08/24 02:00 97.8 F 70 17 126/83 98 04/07/24 20:27 98.1 F 68 17 105/59 98 04/07/24 20:01 68 04/07/24 15:52 98.2 F 68 18 134/68 98 04/07/24 12:35 70 18 122/78 97 04/07/24 12:16 97.5 F L 77 18 115/64 96 Intake and Output 04/07/24 04/08/24 04/08/24 22:59 06:59 14:59 Intake Total 118 118 Balance 118 118 Intake: Oral 118 118 Other: Voiding Method Toilet # Voids 2 3 PHYSICAL EXAMINATION: Patient is lying in the bed comfortably, no acute distress, awake alert and oriented.. HEENT: Normocephalic. Neck is supple. Pupils reactive. Nostrils clear. Oral cavity is moist. Neck reveals no JVD, carotid bruits, or thyromegaly. CHEST EXAMINATION: Trachea is central. Symmetrical expansion. Lung ramos clear to auscultation and percussion. CARDIAC: Normal S1, S2 with no gallops. No murmurs ABDOMEN: Soft. Bowel sounds normal. No organomegaly. No abdominal bruits. Extremities: reveal no edema. No clubbing or cyanosis Neurologically awake, alert, oriented x3 with well-coordinated movements. No focal deficits noted Skin: No rash or skin lesions. Psychiatric: Coperative. Nonsuicidal Musculoskeletal: No joint swelling or deformity. Normal range of motion. Results CBC & Chem 7: 04/07/24 12:27 04/07/24 12:27 Labs: Abnormal Lab Results - Last 24 Hours (Table) 04/07/24 04/07/24 Range/Units 12:27 12:27 PT 9.8 L (10.0-12.5) sec Chloride 108 H (98-107) mmol/L Thrombosis Risk Factor Assmnt - DVT/VTE Prophylaxis DVT/VTE Prophylaxis: Pharmacologic Prophylaxis ordered - Choose All That Apply Any of the Below Risk Factors Present?: No Assessment and Plan Assessment: Atypical chest pain. Ruled out ACS. Significant family history of CAD Asthma Seasonal allergies Fibromyalgia Depression Recent emotional situations DVT prophylaxis with heparin subcu GI prophylaxis PPI Plan: Patient was given a dose of aspirin. Continue with home medications including Cymbalta and Singulair.. Continue pain management. Serial EKG and troponin x 3 negative. Patient is scheduled for stress test as per cardiology recommendations. Continue with telemonitoring and follow-up closely. Time with Patient: Greater than 30
--- NOTE | 2024-04-09 13:00 | P.PN ---
Subjective Progress Note Date: 04/09/24 The patient is a very pleasant 44-year-old female patient with a past medical history significant for overweight but no other cardiovascular issues including hypertension or dyslipidemia or CAD presented to the hospital complaining of chest discomfort. She works at [employer] and she was moving grocery around when she started experiencing discomfort in the epigastric area with no radiation to the arms or neck or shoulders or back got worse and lasted for about 15 to 20 minutes and resolved after that. No associated symptoms of shortness of breath or dizziness or lightness or any feeling of heart racing or fluttering or presyncope or syncope or edema in the lower extremities. She underwent further evaluation including chest x-ray came in to be unremarkable and EKG showing sinus mechanism with no significant ST or T wave abnormalities and cardiac enzymes came to be unremarkable blood work overall came in to be unremarkable as well. No history of CAD or heart failure or cardiac arrhythmia. She does have significant family stay of cardiovascular disease. She used to smoke but she stopped smoking. The examination is remarkable for regular rhythm with a soft systolic murmur and clear breathing sounds bilaterally and no carotid bruit and no edema was noted 2023 The patient was seen and evaluated. Currently she is asymptomatic and she is stable in terms of blood pressure and heart rate. She is scheduled to undergo a stress test and echocardiogram tomorrow morning. The physical examination is remarkable for stable vital signs with regular rate and rhythm and clear breathing sounds bilaterally and no edema was noted in the lower extremities Assessment Atypical chest discomfort Significant family history of cardiovascular disease Plan Acute coronary event was ruled out Rule out severe CAD by obtaining a stress test and the patient would like to wait till Wednesday to have it done Obtain an echocardiogram with Doppler Follow-up with the patient Objective - Vital Signs Vital signs: Vital Signs Temp 98.2 F 04/09/24 07:00 Pulse 71 04/09/24 07:00 Resp 18 04/09/24 07:00 BP 129/72 04/09/24 07:00 Pulse Ox 97 04/09/24 07:00 FiO2 Intake & Output 04/08/24 04/09/24 04/09/24 19:59 06:59 18:59 Intake Total 236 Balance 236 Intake: Intake, IV Titration Amount Sodium Chloride 0.9% 1, 000 ml @ 999 mls/hr IV . Q1H1M STA Rx#:[id number] Oral 236 Other: Voiding Method # Voids - Labs CBC & Chem 7: 04/07/24 12:27 04/07/24 12:27
--- NOTE | 2024-04-09 15:19 | CA ---
Transthoracic Echo Report Name: Cici Massey Age: 44 Gender: F : 1980 Exam Date: 04/08/2024 14:44 Exam Location: [place] [facility] Ht (in): 67 Wt (lb): 250 Ordering Physician: Antwon Farooq MD ([id number]) Attending/Referring Phys: [employer] Clerk Demi Lucero RDCS Procedure CPT: Indications: Chest Pain Cardiac Hx: Technical Quality: Fair Contrast 1: Total Dose (mL): Contrast 2: Total Dose (mL): MEASUREMENTS (Male / Female) Normal Values 2D ECHO LV Diastolic Diameter PLAX 4.3 cm 4.2 - 5.9 / 3.9 - 5.3 cm LV Systolic Diameter PLAX 2.1 cm IVS Diastolic Thickness 1.3 cm 0.6 - 1.0 / 0.6 - 0.9 cm LVPW Diastolic Thickness 1.2 cm 0.6 - 1.0 / 0.6 - 0.9 cm LV Relative Wall Thickness 0.6 RV Internal Dim ED PLAX 2.0 cm LA Systolic Diameter LX 3.3 cm 3.0 - 4.0 / 2.7 - 3.8 cm LV Diastolic Volume MOD BP 70.8 cm??? 67 - 155 / 56 - 104 cm??? LV Systolic Volume MOD BP 25.9 cm??? 22 - 58 / 19 - 49 cm??? LV Ejection Fraction MOD BP 63.4 % >= 55 % LV Cardiac Index MOD BP 1195.1 cm???/min???m??? LV Diastolic Volume MOD 4C 78.0 cm??? LV Systolic Volume MOD 4C 23.6 cm??? LV Ejection Fraction MOD 4C 69.8 % LV Cardiac Index MOD 4C 1447.9 cm???/min???m??? LV Diastolic Length 4C 8.1 cm LV Systolic Length 4C 6.2 cm LV Diastolic Volume MOD 2C 64.4 cm??? LV Systolic Volume MOD 2C 26.7 cm??? LV Ejection Fraction MOD 2C 58.6 % LV Cardiac Index MOD 2C 1003.9 cm???/min???m??? LV Diastolic Length 2C 8.1 cm LV Systolic Length 2C 6.6 cm LA Volume 52.0 cm??? 18 - 58 / 22 - 52 cm??? LA Volume Index 22.0 cm???/m??? 16 - 28 cm???/m??? M-MODE Aortic Root Diameter MM 2.8 cm LA Systolic Diameter MM 3.3 cm LA Ao Ratio MM 1.2 AV Cusp Separation MM 2.1 cm DOPPLER MV Area PHT 2.9 cm??? Mitral E Point Velocity 89.9 cm/s Mitral A Point Velocity 62.7 cm/s Mitral E to A Ratio 1.4 MV Deceleration Time 261.2 ms TR Peak Velocity 158.3 cm/s TR Peak Gradient 10.0 mmHg FINDINGS Left Ventricle Left ventricular ejection fraction is estimated at 55-60 %. Mildly increased septal wall thickness. Mildly increased posterior wall thickness. Normal left ventricular systolic function with no obvious regional wall motion abnormalities. Left ventricular cavity size normal. Right Ventricle Right ventricle not well visualized. Right ventricular systolic pressure within normal limits. Right Atrium Normal right atrial size. Left Atrium Normal left atrial size. Mitral Valve Structurally normal mitral valve. Trace mitral regurgitation. No mitral stenosis. Aortic Valve Trileaflet aortic valve. No aortic valve stenosis or regurgitation. Tricuspid Valve Structurally normal tricuspid valve. Trace tricuspid regurgitation. No tricuspid stenosis. Pulmonic Valve Structurally normal pulmonic valve. Trace pulmonic regurgitation. No pulmonic stenosis. Pericardium No pericardial or pleural effusion. Aorta Normal size aortic root and proximal ascending aorta. CONCLUSIONS Normal LV systolic function Previewed by: Dr. Antwon Farooq MD (Electronically Signed) Final Date: 09 April 2024 15:18
[2024-04-09] MEDS: ACETAMINOPHEN TAB 325 MG TAB PO PRN (17:04)
--- NOTE | 2024-04-09 21:07 | P.PN ---
Subjective Progress Note Date: 04/09/24 Patient is a 44-year-old female with a known history of asthma, fibromyalgia, seasonal allergies, depression and prior history of smoking and occasional marijuana use. 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 Pressure-like sensation. 8 out of 10 in severity. Patient felt pain over the left side of her head. She felt clammy and dizzy.. No nausea vomiting. Mild associated shortness of breath. Patient drove to ER for evaluation. Patient quit smoking several years ago. She has been stressful recently., Her recently had hip replacement and is in and out of rehab and also she is not in terms with her son. Patient's father had heart problems in his 40s. Chest x-ray showed no acute cardiopulmonary process. EKG showed sinus rhythm. Lab data showed WBC 7.7 hemoglobin 13.9 and platelets 309, sodium 139 potassium 4.4 chloride 108 bicarb is 27 BUN 14 and creatinine 0.67 and blood sugar 99. Troponin x 3 negative. 04/09/2024 Patient is sitting in the bed. Awake alert and oriented x 3. No complaints of chest pain or pressure. No shortness of breath. No cough or sputum production. No nausea vomiting abdominal pain or diarrhea. Patient is scheduled for stress test tomorrow. 2D echocardiogram showed normal LV systolic function. Current medications reviewed. Objective - Vital Signs Vital signs: Vital Signs Temp 98.5 F 04/09/24 19:22 Pulse 82 04/09/24 19:22 Resp 16 04/09/24 19:22 BP 130/78 04/09/24 19:22 Pulse Ox 96 04/09/24 19:22 FiO2 Intake & Output 04/09/24 04/09/24 04/10/24 06:59 18:59 06:59 Intake Total 472 Balance 472 Intake: Oral 472 Other: Voiding Method # Voids 1 - Exam PHYSICAL EXAMINATION: Patient is lying in the bed comfortably, no acute distress, awake alert and oriented.. HEENT: Normocephalic. Neck is supple. Pupils reactive. Nostrils clear. Oral cavity is moist. Neck reveals no JVD, carotid bruits, or thyromegaly. CHEST EXAMINATION: Trachea is central. Symmetrical expansion. Lung ramos clear to auscultation and percussion. CARDIAC: Normal S1, S2 with no gallops. No murmurs ABDOMEN: Soft. Bowel sounds normal. No organomegaly. No abdominal bruits. Extremities: reveal no edema. No clubbing or cyanosis Neurologically awake, alert, oriented x3 with well-coordinated movements. No focal deficits noted Skin: No rash or skin lesions. Psychiatric: Coperative. Nonsuicidal Musculoskeletal: No joint swelling or deformity. Normal range of motion. - Labs CBC & Chem 7: 04/07/24 12:27 04/07/24 12:27 Assessment and Plan Assessment: Atypical chest pain. Ruled out ACS. Significant family history of CAD Asthma Seasonal allergies Fibromyalgia Depression Recent emotional situations Obesity with BMI 39.2 DVT prophylaxis with heparin subcu GI prophylaxis PPI Plan: Patient was given a dose of aspirin. Continue with home medications including Cymbalta and Singulair.. Continue pain management. Serial EKG and troponin x 3 negative. Patient is scheduled for stress test as per cardiology recommendations. 2D echocardiogram showed normal EF. Continue with telemonitoring and follow-up closely.
[2024-04-10 07:49] VITALS: RESP 16
--- NOTE | 2024-04-10 10:47 | P.PN ---
Subjective HISTORY OF PRESENT ILLNESS: 04/08/2024 The patient is a very pleasant 44-year-old female patient with a past medical history significant for overweight but no other cardiovascular issues including hypertension or dyslipidemia or CAD presented to the hospital complaining of chest discomfort. She works at [employer] and she was moving grocery around when she started experiencing discomfort in the epigastric area with no radiation to the arms or neck or shoulders or back got worse and lasted for about 15 to 20 minutes and resolved after that. No associated symptoms of shortness of breath or dizziness or lightness or any feeling of heart racing or fluttering or presyncope or syncope or edema in the lower extremities. She underwent further evaluation including chest x-ray came in to be unremarkable and EKG showing sinus mechanism with no significant ST or T wave abnormalities and cardiac enzymes came to be unremarkable blood work overall came in to be unremarkable as well. No history of CAD or heart failure or cardiac arrhythmia. She does have significant family stay of cardiovascular disease. She used to smoke but she stopped smoking. The examination is remarkable for regular rhythm with a soft systolic murmur and clear breathing sounds bilaterally and no carotid bruit and no edema was noted 04/09/2024 The patient was seen and evaluated. Currently she is asymptomatic and she is stable in terms of blood pressure and heart rate. She is scheduled to undergo a stress test and echocardiogram tomorrow morning. The physical examination is remarkable for stable vital signs with regular rate and rhythm and clear breathing sounds bilaterally and no edema was noted in the lower extremities 04/10/2024 Patient examined this morning the bedside. Patient states yesterday evening she was having conversation with her about finances and began to have chest discomfort and palpitations. At the time of examination this morning she denies any chest pain or pressure. Denies any shortness of breath. Vital signs are stable. Echocardiogram completed revealing ejection fraction 55 to 60% with no obvious regional wall motion abnormalities, trace MR and trace TR PHYSICAL EXAM: VITAL SIGNS: Reviewed. GENERAL: Well-developed in no acute distress. NECK: Supple. No JVD or thyromegaly LUNGS: Respirations even and unlabored. Lungs essentially clear to auscultation bilaterally. HEART: Regular rate and rhythm. S1 and S2 heard. EXTREMITIES: Normal range of motion. No clubbing or cyanosis. Peripheral pulses intact. No lower extremity edema ASSESSMENT: Chest pain History of asthma History of fibromyalgia Former nicotine dependence Obesity: BMI 39.2 Family history of CAD PLAN: 2D echo obtained and reviewed Patient to undergo stress echocardiogram today If negative, the patient may be discharged home today from a cardiac standpoint Nurse practitioner note has been reviewed by physician. Signing provider agrees with the documented findings, assessment, and plan of care documented by CAFETERIA DIRECTOR as a scribe. Objective - Vital Signs Vital signs: Vital Signs Temp 98 F 04/10/24 07:00 Pulse 92 04/10/24 07:00 Resp 16 04/10/24 07:00 BP 106/73 04/10/24 07:00 Pulse Ox 93 L 04/10/24 07:00 FiO2 Intake & Output 04/09/24 04/10/24 04/10/24 18:59 06:59 18:59 Intake Total 472 Balance 472 Intake: Oral 472 Other: Voiding Method Toilet Toilet # Voids 1 2 - Labs CBC & Chem 7: 04/07/24 12:27 04/07/24 12:27
[2024-04-10 15:05] VITALS: BP 121/76; PULSE 84; TEMP 98.1
--- NOTE | 2024-04-10 17:48 | CA ---
Stress Echo Report Cici Massey Age: 44 Gender: F : 1980 Exam Date: 04/10/2024 11:44 Exam Location: [facility] Ht (in): 67 Wt (lb): 250 Ordering Physician: Antwon Farooq MD ([id number]) Referring Physician: MAXIMINO, Sheep Farm Worker: Elier Allred Technologist Procedure CPT: Indication: Chest Pain ICD-9 Codes: Rhythm: Patient History: Chest pain Cardiac Medications: Medications in past 24 hours: Contrast: Definity Stress Results Protocol: Bryson Total dose(mL): 2 Exercise Duration (min:sec): 8:[address] Depression (mm): Angina Score: Lopez Score: METS: 9.7 Resting HR: 75 Resting BP: 103 / 48 Peak HR: 146 Peak BP: 209 / 94 Max Predicted HR: 177 82 % Max Predicted HR Target HR: 150 Double Product: [id number] Stress Summary: BP Response: Reason for Termination: MAX EXERTION Cardiac Symptoms: CHEST PAIN ECG Analysis Resting ECG: Normal sinus rhythm normal axis normal intervals Stress ECG: Patient exercised on Bryson protocol for 8 minutes achieving 9 METs 85% of predicted maximal heart rate without chest pain or diagnostic ST segment depression Arrhythmia: Echo Analysis Resting Echo: Normal left ventricular size wall motion systolic function Peak Echo Analysis: Normal hyperdynamic response MEASUREMENTS (Male/Female) Normal Values CONCLUSIONS average exercise tolerance Negative stress test by EKG criteria Negative contrast stress echo Dr. Jose Miguel White MD (Electronically Signed) Final Date: 10 April 2024 17:47
--- NOTE | 2024-04-13 13:04 | P.DS ---
Providers Date of admission: 04/07/24 14:49 Expected date of discharge: 04/10/24 Attending physician: Simeon Chaudhry MD Consults: 04/07/24 14:29 Consult Physician Urgent Consulting Provider: Jose Miguel White Consult Reason/Comments: Chest pain Do you want consulting provider notified?: Yes Primary care physician: Rashaun Francis Hospital Course: Final diagnosis Atypical chest pain. Ruled out ACS. Stress test was negative Significant family history of CAD Asthma Seasonal allergies Fibromyalgia Depression Recent emotional situations Obesity with BMI 39.2 DVT prophylaxis with heparin subcu GI prophylaxis PPI Discharge disposition Patient is being discharged in a stable condition with guarded prognosis to home. Patient will follow-up with Dr. Francis in the outpatient setting upon discharge. Patient is to continue with current medications and outpatient follow-up with cardiology as scheduled. Total time taken is greater than 35 minutes. Hospital course This is a 44-year-old female who was recently admitted with chest pain, atypical and ruled out ACS. Cardiology following as patient has significant family history of coronary artery disease and patient with some comorbidities recommending stress test. Patient stress test was negative and patient was cleared by cardiology for outpatient follow-up. Patient would like to go home and has been instructed to follow-up with primary care provider this week. Please refer to other consultation notes for further HPI. Currently no reports of chest pain, shortness of breath, or palpitations. Patient is afebrile. No reports of nausea or vomiting and patient is tolerating diet. Patient will be discharged home today. Physical exam: Gen: This is a 44-year-old female who is awake, alert and oriented x 3, well-de veloped, well-nourished, obese HEENT: Head is atraumatic, normocephalic. Pupils equal, round. Sclerae is anicteric. NECK: Supple. No JVD. No lymphadenopathy. No thyromegaly. LUNGS: Diminished breath sounds bilaterally otherwise clear to auscultation. No wheezes or rhonchi. No intercostal retractions. HEART: S1, S2 are muffled ABDOMEN: Soft. Obese. Bowel sounds are present. No masses. No tenderness. EXTREMITIES: No pedal edema. No calf tenderness. NEUROLOGICAL: Patient is awake, alert and oriented x3. Cranial nerves 2 through 12 are grossly intact. Please refer to medication reconciliation sheet for a list of medications. The impression and plan of care has been dictated by Natividad Gastelum, Nurse Practitioner as directed. Dr. Bennie MD I have performed a history and examination and MDM of this patient, discussed the same with the dictator, and agree with the dictator's assessment and plan as written ,documented as a scribe. Based on total visit time, I have performed more than 50% of the visit. Patient Condition at Discharge: Good Plan - Discharge Summary Discharge Rx Participant: No New Discharge Prescriptions: New Acetaminophen Tab [Tylenol] 650 mg PO Q6HR PRN tab PRN Reason: Mild Pain Or Fever > 100.5 Continue Montelukast Sodium [Singulair] 10 mg PO HS Loratadine [Claritin] 10 mg PO HS DULoxetine HCL [Cymbalta] 30 mg PO HS Discharge Medication List Montelukast Sodium [Singulair] 10 mg PO HS 05/14/14 [History] Loratadine [Claritin] 10 mg PO HS 01/07/18 [History] DULoxetine HCL [Cymbalta] 30 mg PO HS 10/12/18 [History] Acetaminophen Tab [Tylenol] 650 mg PO Q6HR PRN tab 04/10/24 [Rx] Follow up Appointment(s)/Referral(s): Antwon Farooq MD [STAFF PHYSICIAN] - 2 Weeks Rashaun Francis [Primary Care Provider] - 1-2 days Patient Instructions/Handouts: Influenza Virus Vaccine (By injection), Chest Pain (DC), Stress Echocardiogram (DC) Activity/Diet/Wound Care/Special Instructions: Activity limited until follow-up Follow-up with primary care provider on discharge Continue taking medications as prescribed Follow-up cardiology outpatient Discharge Disposition: HOME SELF-CARE
== END 2024-04-10 19:29 | disposition home or self-care (01) ==
LOC: EC 12:04 → 6NMEDSUR 14:49
PROVIDERS: ADMIT Internal Medicine; ATTEND Internal Medicine
DX: R07.89 Other chest pain (principal); J45.909 Unspecified asthma, uncomplicated; F32.A Depression, unspecified; M79.7 Fibromyalgia; E66.9 Obesity, unspecified; Z68.39 Body mass index [BMI] 39.0-39.9, adult; Z87.891 Personal history of nicotine dependence; Z79.899 Other long term (current) drug therapy; Z88.5 Allergy status to narcotic agent; Z82.49 Family history of ischemic heart disease and other diseases of the circulatory system
CPT/HCPCS: 96376 ×2; 96374; 96361; 99285; 36415; 93005 ×2; 93306; 80053; 83735; 84484; 85025; 85610; 85730; 71046; 90656; G0378 ×4; C8930; G0008; Q9957; J2470 ×3; 93351

== ENCOUNTER 2024-05-24 10:42 | Emergency (ER) | payer OTHER ==
[2024-05-24 10:50] VITALS: RESP 18
--- NOTE | 2024-05-24 11:37 | ED ---
Nausea/Vomiting/Diarrhea HPI - General Chief complaint: Nausea/Vomiting/Diarrhea Stated complaint: NVD,Headache Time Seen by Provider: 05/24/24 11:15 Source: patient, RN notes reviewed Mode of arrival: ambulatory Limitations: no limitations - History of Present Illness Initial comments: This is a 42-year-old female history of fibromyalgia presenting with multiple complaints. States yesterday evening she had multiple episodes of diarrhea. Throughout the night she began to develop sinus congestion, runny nose, and body aches. additionally this morning she had a few episodes of emesis. currently endorsing diffuse abdominal pain and headache. endorses chills with no reported fevers. Denies hematemesis, hematochezia, melena. Denies urinary changes. - Related Data Home Medications Medication Instructions Recorded Confirmed Montelukast Sodium [Singulair] 10 mg PO HS 05/14/14 04/07/24 Loratadine [Claritin] 10 mg PO HS 01/07/18 04/07/24 DULoxetine HCL [Cymbalta] 30 mg PO HS 10/12/18 04/07/24 Previous Rx's Medication Instructions Recorded Acetaminophen Tab [Tylenol] 650 mg PO Q6HR PRN tab 04/10/24 Ondansetron Odt [Zofran Odt] 4 mg PO Q8HR PRN #10 tab 05/24/24 Allergies Allergy/AdvReac Type Severity Reaction Status Date / Time prednisone Allergy increases Verified 05/24/24 10:50 heart rate, chest flutters thyme Allergy Anaphylaxis Verified 05/24/24 10:50 hydrocodone bitartrate AdvReac hyperactivi Verified 05/24/24 10:50 [From Vicodin] ty eggplant Allergy Anaphylaxis Uncoded 04/07/24 14:48 Review of Systems ROS Statement: Those systems with pertinent positive or pertinent negative responses have been documented in the HPI. ROS Other: All systems not noted in ROS Statement are negative. Past Medical History Past Medical History: Asthma, Fibromyalgia Additional Past Medical History / Comment(s): seasonal allergies History of Any Multi-Drug Resistant Organisms: None Reported Past Surgical History: Section, Hysterectomy Past Psychological History: Depression Smoking Status: Former smoker Past Alcohol Use History: Occasional Past Drug Use History: Marijuana General Exam Limitations: no limitations Eye exam: Present: normal appearance, PERRL, EOMI. Absent: scleral icterus, conjunctival injection, periorbital swelling Neck exam: Present: normal inspection. Absent: tenderness, meningismus, lymphadenopathy Respiratory exam: Present: normal lung sounds bilaterally. Absent: respiratory distress, wheezes, rales, rhonchi, stridor Cardiovascular Exam: Present: regular rate, normal rhythm, normal heart sounds. Absent: systolic murmur, diastolic murmur, rubs, gallop, clicks GI/Abdominal exam: Present: soft, tenderness (diffuse), normal bowel sounds. Absent: distended, guarding, rebound, rigid Extremities exam: Present: normal inspection, full ROM, normal capillary refill. Absent: tenderness, pedal edema, joint swelling, calf tenderness Back exam: Present: normal inspection Course Vital Signs 05/24/24 05/24/24 10:48 14:24 Temperature 97.3 F L 98.2 F Pulse Rate 79 65 Respiratory 18 18 Rate Blood Pressure 119/78 118/79 O2 Sat by Pulse 98 97 Oximetry Medical Decision Making - Medical Decision Making Was pt. sent in by a medical professional or institution (, PA, FARM EQUIPMENT OPERATOR, urgent care, hospital, or half-way...) When possible be specific @ -No Did you speak to anyone other than the patient for history (EMS, parent, family, police, friend...)? What history was obtained from this source @ -No Did you review nursing and triage notes (agree or disagree)? Why? @ -I reviewed and agree with nursing and triage notes Were old charts reviewed (outside hosp., previous admission, EMS record, old EKG, old radiological studies, urgent care reports/EKG's, half-way records)? Report findings @ -No old charts were reviewed Differential Diagnosis (chest pain, altered mental status, abdominal pain women, abdominal pain men, vaginal bleeding, weakness, fever, dyspnea, syncope, headache, dizziness, GI bleed, back pain, seizure, CVA, palpatations, mental health, musculoskeletal)? @ -Differential Abdominal Pain Women: Appendicitis, Cholecystitis, diverticulosis, ischemic bowel, pancreatitis, hepatitis, UTI, gastroenteritis, AAA, incarcerated hernia, bowel obstruction, constipation, inflammatory bowel, hepatitis, peptic ulcer disease, splenic infarction, perforated viscus, vulvitis, ovarian torsion, PID, kidney stone, placenta abruption, this is not meant to be an all-inclusive list EKG interpreted by me (3pts min.). @ -None X-rays interpreted by me (1pt min.). @ -None done CT interpreted by me (1pt min.). @ -None done U/S interpreted by me (1pt. min.). @ -None done What testing was considered but not performed or refused? (CT, X-rays, U/S, labs)? Why? @ -CT imaging negative associated with this time. After fluid resuscitation and reevaluation after antiemetics patient states that she is feeling better. Ad ditionally, patient's viral testing positive with minimal clinical concern for intra-abdominal process at this time. Patient is agreeable deferring CT imaging of the abdomen as well. What meds were considered but not given or refused? Why? @ -None Did you discuss the management of the patient with other professionals (professionals i.e. , PA, FARM EQUIPMENT OPERATOR, lab, RT, psych nurse, social media community manager, lawyer probate, te acher, hospital chief financial officer, shoe caser)? Give summary @ -No Was smoking cessation discussed for >3mins.? @ -No Was critical care preformed (if so, how long)? @ -No Were there social determinants of health that impacted care today? How? (Homelessness, low income, unemployed, alcoholism, drug addiction, transportation, low edu. Level, literacy, decrease access to med. care, half-way, rehab)? @ -No Was there de-escalation of care discussed even if they declined (Discuss DNR or withdrawal of care, Hospice)? DNR status @ -No What co-morbidities impacted this encounter? (DM, HTN, Smoking, COPD, CAD, Cancer, CVA, ARF, Chemo, Hep., AIDS, mental health diagnosis, sleep apnea, morbid obesity)? @ -None Was patient admitted / discharged? Hospital course, mention meds given and route, prescriptions, significant lab abnormalities, going to OR and other pertinent info. @ -Discharge. 44-year-old female presenting with nausea, vomiting, diarrhea, congestion. Patient had diffuse abdominal tenderness to palpation with no signs of rebound tenderness or rigidity. She is provided with fluids, antiemetics, Toradol, and Protonix pending laboratory workup. She is agree with this plan. Laboratory testing unremarkable including CBC, CMP, urinalysis. Patient has tested positive for RSV. Recommend that patient continue supportive treatment at home. Additionally, she is provided with prescription for Zofran to take as needed. Case discussed with Dr. Casiano Undiagnosed new problem with uncertain prognosis? @ -No Drug Therapy requiring intensive monitoring for toxicity (Heparin, Nitro, Insulin, Cardizem)? @ -No Were any procedures done? @ -No Diagnosis/symptom? @ -RSV, nausea and vomiting, diarrhea Acute, or Chronic, or Acute on Chronic? @ -Acute Uncomplicated (without systemic symptoms) or Complicated (systemic symptoms)? @ -Uncomplicated Side effects of treatment? @ -No Exacerbation, Progression, or Severe Exacerbation? @ -No Poses a threat to life or bodily function? How? (Chest pain, USA, SD, pneumonia, PE, COPD, DKA, ARF, appy, cholecystitis, CVA, Diverticulitis, Homicidal, Suicidal, threat to staff... and all critical care pts) @ -No - Lab Data Result diagrams: 05/24/24 11:59 05/24/24 11:59 Lab Results 05/24/24 05/24/24 05/24/24 Range/Units 11:59 11:59 11:59 WBC 8.3 (3.8-10.6) k/uL RBC 4.68 (3.80-5.40) m/uL Hgb 13.7 (11.4-16.0) gm/dL Hct 41.7 (34.0-46.0) % MCV 89.1 (80.0-100.0) fL MCH 29.4 (25.0-35.0) pg MCHC 32.9 (31.0-37.0) g/dL RDW 12.9 (11.5-15.5) % Plt Count 283 (150-450) k/uL MPV 6.6 Neutrophils % 73 % Lymphocytes % 20 % Monocytes % 4 % Eosinophils % 2 % Basophils % 0 % Neutrophils # 6.0 (1.3-7.7) k/uL Lymphocytes # 1.7 (1.0-4.8) k/uL Monocytes # 0.3 (0-1.0) k/uL Eosinophils # 0.2 (0-0.7) k/uL Basophils # 0.0 (0-0.2) k/uL Sodium 138 (137-145) mmol/L Potassium 4.4 (3.5-5.1) mmol/L Chloride 105 (98-107) mmol/L Carbon Dioxide 26 (22-30) mmol/L Anion Gap 7 mmol/L BUN 14 (7-17) mg/dL Creatinine 0.73 (0.52-1.04) mg/dL Est GFR (CKD-EPI)AfAm >90 (>60 ml/min/1.73 sqM) Est GFR (CKD-EPI)NonAf >90 (>60 ml/min/1.73 sqM) Glucose 119 H (74-99) mg/dL Plasma Lactic Acid Dmitry 1.3 (0.7-2.0) mmol/L Calcium 9.4 (8.4-10.2) mg/dL Total Bilirubin 0.4 (0.2-1.3) mg/dL AST 19 (14-36) U/L ALT 18 (4-34) U/L Alkaline Phosphatase 65 (38-126) U/L Total Protein 6.8 (6.3-8.2) g/dL Albumin 4.3 (3.5-5.0) g/dL Amylase 44 (30-110) U/L Lipase 65 (23-300) U/L Urine Color Urine Appearance (Clear) Urine pH (5.0-8.0) Ur Specific [place] (1.001-1.035) Urine Protein (Negative) Urine Glucose (UA) (Negative) Urine Ketones (Negative) Urine Blood (Negative) Urine Nitrite (Negative) Urine Bilirubin (Negative) Urine Urobilinogen (<2.0) mg/dL Ur Leukocyte Esterase (Negative) Influenza Type A (PCR) (Not Detectd) Influenza Type B (PCR) (Not Detectd) RSV (PCR) (Not Detectd) SARS-CoV-2 (PCR) (Not Detectd) 05/24/24 05/24/24 Range/Units 11:59 13:30 WBC (3.8-10.6) k/uL RBC (3.80-5.40) m/uL Hgb (11.4-16.0) gm/dL Hct (34.0-46.0) % MCV (80.0-100.0) fL MCH (25.0-35.0) pg MCHC (31.0-37.0) g/dL RDW (11.5-15.5) % Plt Count (150-450) k/uL MPV Neutrophils % % Lymphocytes % % Monocytes % % Eosinophils % % Basophils % % Neutrophils # (1.3-7.7) k/uL Lymphocytes # (1.0-4.8) k/uL Monocytes # (0-1.0) k/uL Eosinophils # (0-0.7) k/uL Basophils # (0-0.2) k/uL Sodium (137-145) mmol/L Potassium (3.5-5.1) mmol/L Chloride (98-107) mmol/L Carbon Dioxide (22-30) mmol/L Anion Gap mmol/L BUN (7-17) mg/dL Creatinine (0.52-1.04) mg/dL Est GFR (CKD-EPI)AfAm (>60 ml/min/1.73 sqM) Est GFR (CKD-EPI)NonAf (>60 ml/min/1.73 sqM) Glucose (74-99) mg/dL Plasma Lactic Acid Dmitry (0.7-2.0) mmol/L Calcium (8.4-10.2) mg/dL Total Bilirubin (0.2-1.3) mg/dL AST (14-36) U/L ALT (4-34) U/L Alkaline Phosphatase (38-126) U/L Total Protein (6.3-8.2) g/dL Albumin (3.5-5.0) g/dL Amylase (30-110) U/L Lipase (23-300) U/L Urine Color Yellow Urine Appearance Clear (Clear) Urine pH 5.5 (5.0-8.0) Ur Specific [place] 1.028 (1.001-1.035) Urine Protein Negative (Negative) Urine Glucose (UA) Negative (Negative) Urine Ketones Negative (Negative) Urine Blood Negative (Negative) Urine Nitrite Negative (Negative) Urine Bilirubin Negative (Negative) Urine Urobilinogen <2.0 (<2.0) mg/dL Ur Leukocyte Esterase Negative (Negative) Influenza Type A (PCR) Not Detected (Not Detectd) Influenza Type B (PCR) Not Detected (Not Detectd) RSV (PCR) Detected A (Not Detectd) SARS-CoV-2 (PCR) Not Detected (Not Detectd) Disposition Clinical Impression: RSV (acute bronchiolitis due to respiratory syncytial virus), Nausea and vomiting Disposition: HOME SELF-CARE Condition: Good Instructions (If sedation given, give patient instructions): Respiratory Syncytial Virus (ED) Additional Instructions: Please return to the Emergency Department if symptoms worsen or any other concerns. Prescriptions: Ondansetron Odt [Zofran Odt] 4 mg PO Q8HR PRN #10 tab PRN Reason: Nausea Is patient prescribed a controlled substance at d/c from ED?: No Referrals: Rashaun Francis [Primary Care Provider] - 1-2 days Time of Disposition: 14:09
[2024-05-24] MEDS: SODIUM CHLORIDE 0.9% 1,000 ML IV STA (12:06)
[2024-05-24 12:07] LABS: Basophils % (A) 0 %; Eosinophils # (A) 0.2 k/uL (0-0.7); Eosinophils % (A) 2 %; HCT 41.7 % (34.0-46.0); HGB 13.7 gm/dL (11.4-16.0); Lymphocytes # (A) 1.7 k/uL (1.0-4.8); Lymphocytes % (A) 20 %; MCH 29.4 pg (25.0-35.0); MCHC 32.9 g/dL (31.0-37.0); MCV 89.1 fL (80.0-100.0); Mean Platelet Volume 6.6; Monocytes # (A) 0.3 k/uL (0-1.0); Monocytes % (A) 4 %; Neutrophils % (A) 73 %; Platelet Count 283 k/uL (150-450); RBC 4.68 m/uL (3.80-5.40); RDW 12.9 % (11.5-15.5); WBC 8.3 k/uL (3.8-10.6)
[2024-05-24] MEDS: KETOROLAC 15 MG/ML 1 ML VIAL IVP STA (12:09)
[2024-05-24] MEDS: PANTOPRAZOLE 40 MG/10 ML VIAL IVP STA (12:09)
[2024-05-24] MEDS: ONDANSETRON 4 MG/2 ML VIAL IVP STA (12:09)
[2024-05-24 12:19] LABS: ALT 18 U/L (4-34); AST 19 U/L (14-36); African American GFR (CKD) >90 (>60 ml/min/1.73 sqM); Albumin 4.3 g/dL (3.5-5.0); Alkaline Phosphatase 65 U/L (38-126); Amylase 44 U/L (30-110); Anion Gap 7 mmol/L; Blood Urea Nitrogen 14 mg/dL (7-17); Calcium 9.4 mg/dL (8.4-10.2); Carbon Dioxide 26 mmol/L (22-30); Chloride 105 mmol/L (98-107); Glucose 119 mg/dL (74-99); Lipase 65 U/L (23-300); Non-African American GFR(CKD) >90 (>60 ml/min/1.73 sqM); Potassium 4.4 mmol/L (3.5-5.1); Sodium 138 mmol/L (137-145); Total Bilirubin 0.4 mg/dL (0.2-1.3); Total Protein 6.8 g/dL (6.3-8.2)
[2024-05-24 14:01] LABS: Appearance,Urine Clear (Clear); Bilirubin,Urine Negative (Negative); Blood,Urine Negative (Negative); Color,Urine Yellow; Glucose,Urine (UA) Negative (Negative); Ketones,Urine Negative (Negative); Leukocyte Esterase,Urine Negative (Negative); Nitrite,Urine Negative (Negative); PH, Urine 5.5 (5.0-8.0); Protein,Urine Negative (Negative); Specific Gravity,Urine 1.028 (1.001-1.035); Urobilinogen,Urine <2.0 mg/dL (<2.0)
[2024-05-24 14:26] VITALS: BP 118/79; PULSE 65; TEMP 98.2
== END 2024-05-24 14:26 | disposition home or self-care (01) ==
LOC: EC 10:42
DX: R11.2 Nausea with vomiting, unspecified (principal); B97.4 Respiratory syncytial virus as the cause of diseases classified elsewhere; Z87.891 Personal history of nicotine dependence; Z88.5 Allergy status to narcotic agent; Z88.8 Allergy status to other drugs, medicaments and biological substances; Z91.018 Allergy to other foods
CPT/HCPCS: 36415; 80053; 82150; 83605; 83690; 85025; 81003; 87636; 99284; 96374; 96375 ×2; 96361; J2405; J1885; J2470